=== PATIENT | female | born 1965 | race Caucasian/White ===

== ENCOUNTER 2019-02-10 04:50 | Inpatient (IN) | payer BC ==
--- NOTE | 2019-01-30 17:10 | HP ---
Admitting History and Physical - Primary Care Physician PCP: Carlos Eduardo Montalvo - Admission Chief Complaint: Left Breast cancer History of Present Illness: 53 year old nulliparous postmenapausal female patient who had mammogram showing new left breast 6:00mcalcifications 08/2018 and seen on compression 2 groups of of calcification 3 to 5 cm FN. Stereotactic core bx 08/21/2018 showed infiltrating ductal carcinoma and DCIS. She underwent neoadjuvant chemotherapy for ER+ CO- Her 2 + cancer. Pet cCT scan showed 08/2018 showed no metastatc dz but has some enhancement in appendix and could be a carcinoid. MRI breast 2018 showed showed other suspicious areas lateral left breast and right upper outer aspect. MRI core bxs showed DCIS left and invasive mammary ca in right. She underwent CHPneoadjuvant and was suppose to undergo bilateral mastectomies with CHRISTAL reconstruction at [place] but breast surgeon left. History Source: Patient Limitations to Obtaining History: No Limitations - Past Medical History Gastrointestinal: Yes: Other (most likely has carcinoid from recent PETCT findings) Renal/: Yes: Renal Calculi Endocrine: Yes: Other (thyroid nodules) - Past Surgical History Past Surgical History: Yes: Hysterectomy (TIFFANIE 07/2003 chronic endometriosis lysis of adhesions ureteral dissection Supracervical BSO) Additional Past Surgical History: Port placement 08/2018 endometrial bx and lap left breast excision - Smoking History Smoking history: Never smoked Have you smoked in the past 12 months: No - Alcohol/Substance Use Hx Alcohol Use: Yes (1 to 2 wk) Home Medications - Allergies Allergies/Adverse Reactions: Allergies Allergy/AdvReac Type Severity Reaction Status Date / Time morphine Allergy Verified 01/30/19 17:12 tramadol [From Ultram] Allergy Verified 01/30/19 17:12 - Home Medications Home Medications (free text): Herceptin Family Disease History - Family Disease History Other Family History: mat cousin lobular carcinoma breast 39 Physical Examination Constitutional: Yes: No Distress Breast(s): Yes: Other (moderately ptotic breasts C cup No palpable massesor adenopathy S/P neoadjuvant chemotherapy) Problem List - Problems (1) Bilateral breast cancer Code(s): C50.911 - MALIGNANT NEOPLASM OF UNSP SITE OF RIGHT FEMALE BREAST; C50.912 - MALIGNANT NEOPLASM OF UNSPECIFIED SITE OF LEFT FEMALE BREAST Qualifiers: Breast location: overlapping sites of breast Estrogen receptor status: positive Patient sex: female Qualified Code(s): C50.811 - Malignant neoplasm of overlapping sites of right female breast; C50.812 - Malignant neoplasm of overlapping sites of left female breast; Z17.0 - Estrogen receptor positive status [ER+] Assessment/Plan Bilateral mastectomies ,Bilateral lymphoscintograms, bilateral sentenel node biopsies with possible bilateral axillary node dissections CHRISTAL reconstruction
[2019-02-09 15:48] VITALS: BMI 27.6
[2019-02-10] MEDS ORDERED: SUCCINYLCHOLINE CHLORIDE 200 MG/10 ML SYRINGE ONE (07:14)
[2019-02-10] MEDS ORDERED: DEXAMETHASONE SOD PHOSPHATE 4 MG/1 ML VIAL ONE (07:14)
[2019-02-10] MEDS ORDERED: fentaNYL CITRATE 250 MCG/5 ML VIAL ONE (07:14)
[2019-02-10] MEDS ORDERED: LIDOCAINE HCL/PF 2% SDV 5ML VIAL ONE (07:14)
[2019-02-10] MEDS ORDERED: PROPOFOL 20 ML ONE (07:14)
[2019-02-10] MEDS ORDERED: ROCURONIUM BROMIDE 50 MG/5 ML SYRINGE ONE ×4 (07:14→12:33)
[2019-02-10] MEDS ORDERED: HEPARIN NA (PORCINE) 5,000 UNITS/ML 1ML VIAL ONE (07:26)
[2019-02-10] MEDS ORDERED: BUPIVACAINE LIPOSOME/PF (EXPAREL) 266 MG/20 ML VIAL ONE (07:26)
[2019-02-10] MEDS ORDERED: ISOSULFAN BLUE 10 MG/ML VIAL SQ ONE (07:26)
[2019-02-10] MEDS ORDERED: BUPIVACAINE HCL/PF 0.25% (2.5MG/ML) 10 ML VIAL ONE (07:26)
[2019-02-10] MEDS ORDERED: PAPAVERINE HCL 30 MG/1 ML 10 ML VIAL NR ONE (07:26)
[2019-02-10] MEDS ORDERED: DESFLURANE GAS 240 ML BOTTLE IH ONE (07:27)
[2019-02-10] MEDS ORDERED: SCOPOLAMINE HYDROBROMIDE 1 PATCH PATCH.TD72 ONE (07:46)
[2019-02-10] MEDS ORDERED: MIDAZOLAM HCL 2 MG/2 ML SINGLE DOSE VIAL ONE (08:12)
[2019-02-10] MEDS ORDERED: ceFAZolin SODIUM 1 GM VIAL IVPB ONE (08:25)
[2019-02-10] MEDS ORDERED: ceFAZolin SODIUM 1 GM VIAL ONE ×4 (08:27→19:50)
[2019-02-10] MEDS ORDERED: HEPARIN NA (PORCINE) 5,000 UNITS/ML 1ML VIAL TP ONE (09:23)
[2019-02-10] MEDS ORDERED: GLYCOPYRROLATE 0.2 MG/1 ML VIAL ONE ×2 (09:48→16:58)
--- NOTE | 2019-02-10 14:04 | OP ---
DATE OF OPERATION: 02/10/2019 PREOPERATIVE DIAGNOSIS: Bilateral breast cancer with left overlapping multicentric breast cancer and right breast cancer, upper outer quadrant. POSTOPERATIVE DIAGNOSIS: Bilateral breast cancer with left overlapping multicentric breast cancer and right breast cancer, upper outer quadrant. PROCEDURE: Bilateral total mastectomies, bilateral axillary sentinel lymph node biopsies, and bilateral CHRISTAL (deep inferior epigastric perforators) flap reconstruction. ANESTHESIA: General endotracheal anesthesia. PRIMARY SURGEON: Sandra Singletary MD LANDSCAPE SUPERVISOR: MARJORIE Lantigua Primary surgeon for the bilateral CHRISTAL flap reconstruction is Dr. Sandra Sanchez with his co-surgeon, Dr. Andi Brnuer and inside sales assistant Jackie Aguilar. There were no complications. Briefly, the patient is a 53-year-old, nulliparous, postmenopausal white female of [place] descent. The patient was found to have some calcifications in the left breast 6 o'clock region on screening mammography in August 2018, and stereotactic biopsy of 2 groups of calcifications in the left breast 6 o'clock region came back with high-grade infiltrating ductal cancer, which was ER positive, MD negative, HER-2 positive, with a high Ki-67. MRI showed other areas in the lateral left breast and right breast upper outer quadrant, and MRI biopsies of these areas showed an invasive mammary carcinoma in the right breast upper outer quadrant and DCIS in the lateral aspect of the left breast. She underwent neoadjuvant chemotherapy with TCHP and underwent genetic testing, which was negative. PET scan showed no metastatic disease. She now presents after neoadjuvant chemotherapy and has chosen to undergo bilateral mastectomies and understood the need for sentinel lymph node biopsies and was seen by Plastic Surgery and decided to go forward with CHRISTAL flap reconstructions. The patient was brought in for the procedure on February 10, 2019. She first underwent bilateral lymphoscintigraphies with periareolar injections of technetium 99 in Nuclear Medicine, was brought up to the holding area at [facility]. In the holding area, site verification was made and informed consent was obtained. She was marked preoperatively by the plastic surgeon. She was brought in to the operating room and laid on the OR table in the supine position. Venodynes were placed on the lower extremities prior to induction. She received 2 g of Ancef prior to incision. She had a Aguilera placed, underwent general endotracheal anesthesia. Lymphazurin blue 3 mL was injected intradermally around the nipple-areolar complex of both breasts and massage was instituted. Both breasts were then sterilely prepped and draped in the usual fashion with the arms prepped in the field. The plastic surgeons had performed Doppler evaluation of the abdominal wall to julián the perforators, and the abdominal wall was sterilely prepped and draped within the field. At this point, timeout was performed. The left sentinel lymph node biopsy was first performed. Incision was made just below the hair-bearing area of the left axilla and dissection was undertaken using the navigator probe to direct the dissection. Two sentinel nodes were found in the level 1 region of the left axilla. The 1st one was blue with no radioactive counts and the 2nd one was slightly blue with a 10-second gamma count of 155. No other blue or hot nodes were found. Hemostasis was achieved. These 2 nodes were sent down for frozen section, came back negative, so no further nodes needed to be removed. At this point, gloves were changed and the right axilla was approached. Again, incision was made just below the hair-bearing area and dissection was undertaken into the right axilla and a blue lymphatic was easily seen coursing through a blue hot node with a 10-second gamma count of 353. This was sent down for frozen section, came back negative, so no further nodes were removed. No other blue or hot nodes were found in the right axilla. At this point, the right mastectomy was performed using a circumareolar incision around the right breast nipple-areolar complex in a skin-sparing fashion. Skin flap was raised using electrocautery, raising the skin flap superiorly to the level of the clavicle, medially to the level of the sternum, laterally to the level of the latissimus, and inferiorly below the level of the inframammary fold. The breast was taken down off the pectoralis major muscle from medial to lateral, completely removed intact. It was oriented with a long lateral and short superior suture and weighed to allow for appropriate cosmetic result. Specimen radiograph showed removal of the 2 clips in question in the right breast and it was placed in formalin, sent back down to Pathology. Hemostasis was achieved and the wound was copiously irrigated with warm sterile saline. An anterior margin was taken in the upper outer aspect of the right breast skin flap and sent separately as right breast anterior margin with a suture marking the biopsy cavity site. The wound was copiously irrigated and hemostasis achieved. At this point, the left breast was approached, gloves were changed, and again a circumareolar incision was made, removing the entire nipple-areolar complex in a skin-sparing technique. The skin flap was raised superiorly to the level of the clavicle, medially to the level of the sternum, laterally to the level of the latissimus, and inferiorly below the level of the inframammary fold. The breast was taken down off the pectoralis major muscle from medial to lateral, completely removed intact. It was oriented with a long lateral and short superior suture and weighed to allow for appropriate cosmetic result. Specimen radiograph of the breast showed removal of the 3 clips in question in the left breast, showing removal of the cancer. Hemostasis was achieved. The breast was placed in formalin, sent back to Pathology. Separate margins were then taken in the left breast anterior 6 o'clock margin and left breast anterolateral margin, and these margins were sent separately to Pathology with a suture marking the biopsy cavity site. The wound was copiously irrigated and warm saline was used and hemostasis was achieved. At this point, Dr. Sanchez and Dr. Bruner became the primary surgeons for the bilateral CHRISTAL reconstructions. They started harvesting the abdominal flap after the lymph nodes came back negative. All sponge and needle counts were correct at this point in the case and estimated blood loss was about 125 mL. She was hemodynamically stable at this point in the case. The patient will be recovered and then admitted to the ICU postoperatively after the reconstruction for close flap monitoring. All wounds will be closed by Plastic Surgery. SANDRA SINGLETARY M.D. MARIO/[id number]
[2019-02-10] MEDS ORDERED: VECURONIUM BROMIDE 10 MG VIAL ONE ×2 (14:31→16:31)
[2019-02-10] MEDS ORDERED: BUPIVACAINE LIPOSOME/PF (EXPAREL) 266 MG/20 ML VIAL IJ ONE (15:30)
[2019-02-10] MEDS ORDERED: BUPIVACAINE HCL/PF 0.25% (2.5MG/ML) 10 ML VIAL IJ ONE (15:30)
[2019-02-10] MEDS ORDERED: NEOSTIGMINE METHYLSULFATE 0.5 MG/ML - 10 ML MDV ONE (16:58)
[2019-02-10] MEDS ORDERED: oxyCODONE HCL 5 MG TABLET PO PRN ×2 (17:25→17:26)
[2019-02-10] MEDS ORDERED: ONDANSETRON 4 MG/2 ML VIAL IVPUSH PRN (17:25)
[2019-02-10] MEDS ORDERED: diazePAM 5 MG TABLET PO PRN (17:26)
[2019-02-10] MEDS ORDERED: FAMOTIDINE 20 MG/50 ML IVPB 20 MG/50 ML MG IVPB ONE ×2 (17:27→18:21)
[2019-02-10] MEDS: DEXTROSE 5%-0.45% SALINE 1,000 ML IV SCH (17:30)
[2019-02-10] MEDS ORDERED: FAMOTIDINE 20 MG PREMIXED IVPB IVPB ONE (17:35)
--- NOTE | 2019-02-10 18:09 | OP ---
Operative Note - Note: Operative Date: 02/10/19 Pre-Operative Diagnosis: breast cancer Operation: bilateral mastectomy wit sentinel node b/l and CHRISTAL( deep inferior epigastric jewel corner brushing machine operator) flap reconstruction Surgeon: Andi Bruner Sales Operations Director: Abebe Sanchez Anesthesiologist/COVERAGE SPECIALIST: Tish Steward Anesthesia: General Specimens Removed: bilateral breast with sentinel node Estimated Blood Loss (mls): 150 Drains, Volume Out (mls): 400 (alvarez) Fluid Volume Replaced (mls): 3,700 Operative Report Dictated: Yes
[2019-02-10] MEDS ORDERED: ACETAMINOPHEN INJECTION 200 ML IVPB ONE (18:27)
[2019-02-10] MEDS: ACETAMINOPHEN 1000 MG/100 ML VIAL (NON FORMULARY) IVPB SCH ×3 (18:45→23:27)
--- NOTE | 2019-02-10 20:18 | CONSULT ---
Consultation: CONSULT SERVICE: ICU Resident HISTORY OF PRESENT ILLNESS: 53yo F with h/o of new L and R breast Ca who presents today after bilateral mastectomies with sentinel node biopsies and CHRISTAL flap construction. Pt had calcifications seen on 08/2018 on routine mammogram and underwent core biopsy which revealed infiltrating ductal carcinoma and DCIS in her L breast. She underwent neoadjuvant therapy (ER+[place]- HER2+ ca). In 08/2018 she was found to have other areas of suspicion in her R breast with core bx showing invasive mammary Ca and again underwent neoadjuvant therapy. She was supposed to have b/ l mastectomy with CHRISTAL reconstruction at [place] however the surgeon had moved and was unable to provide this service. Today she underwent her scheduled procedure with Dr. Montalvo with reported 150cc EBL and 3.7L IVF resuscitation. Pt's surgery was uncomplicated and she was extubated without complication. Pt currently reports having a sore throat and feeling of a dry mouth, but denies any pain, headaches, nausea, abdominal pain, weakness, numbness/tingling. ALL: Morphine and Tramadol - Nausea only SoHx: Occasional day smoker Wine at dinner/social drinker Works as tax accounting manager at [employer] FamHx: Mother - may. - Lung Ca / to smoking Father - may. - CT @75yo 2 brothers - 1 alive - HTN MGM/MGF - CT's PGM/PGF - Colon Ca/Dementia REVIEW OF SYSTEMS: As per HPI PHYSICAL EXAMINATION Vital Signs 02/10/19 02/10/19 02/10/19 06:39 06:42 06:43 Temperature 98.1 F 98.1 F Pulse Rate 57 L 57 L Respiratory 20 20 Rate Blood Pressure 129/72 129/72 O2 Sat by Pulse 99 Oximetry (%) 02/10/19 02/10/19 02/10/19 17:23 17:35 17:50 Temperature 97.6 F Pulse Rate 106 H 79 54 L Respiratory 18 16 14 Rate Blood Pressure 140/82 132/70 105/60 O2 Sat by Pulse 97 97 100 Oximetry (%) 02/10/19 02/10/19 02/10/19 18:05 18:20 18:35 Temperature Pulse Rate 55 L 58 L 57 L Respiratory 18 18 14 Rate Blood Pressure 113/56 L 106/57 L 123/61 O2 Sat by Pulse 100 100 100 Oximetry (%) 02/10/19 02/10/19 02/10/19 18:50 19:05 19:20 Temperature Pulse Rate 60 58 L 58 L Respiratory 14 14 16 Rate Blood Pressure 113/58 L 118/63 115/60 O2 Sat by Pulse 100 100 100 Oximetry (%) GENERAL: NAd, awake, alert, and fully oriented HEENT: NC/AT, EOMi, JAYA, sclera anicteric, pallor noted, dry mucosa NECK: No JVD . LUNGS: CTA apically bilaterally. No wheezes, and no crackles. No accessory muscle use. Room air SpO2 97% HEART: RRR, normal S1 and S2 without murmur CHEST: Surgical area not observed at this time. Support in place ABDOMEN: Soft, NT/ND, hypoactive bowel sounds, no guarding. : Aguilera in place draining clear blue ~50-100cc in collection bag EXTREMITIES: 2+ DP pulses, warm, well-perfused. No calf tenderness. No peripheral edema. SCDs in place PSYCHIATRIC: Cooperative. Good eye contact. Appropriate mood and affect. SKIN: Warm, dry, no rashes or lesions noted. Laboratory Results 02/10/19 02/10/19 06:17 07:55 Blood Type O NEGATIVE O NEGATIVE Antibody Screen Negative Active Medications Generic Name Dose Route Start Last Admin Trade Name Freq PRN Reason Stop Dose Admin Acetaminophen 1,000 mg 02/10/19 17:45 02/10/19 18:45 Ofirmev Injection - IVPB 02/11/19 11:46 1,000 mg Q6H CLIF Administration Aspirin 325 mg 02/10/19 20:10 Asa - PO DAILY [facility] Diazepam 5 mg 02/10/19 17:26 Valium - PO Q8H PRN ANXIETY Docusate Sodium 100 mg 02/10/19 22:00 Colace - PO BID [facility] Enoxaparin Sodium 40 mg 02/11/19 10:00 Lovenox - SQ DAILY [facility] Fentanyl 50 mcg 02/10/19 17:25 02/10/19 18:15 Sublimaze Injection - IVPUSH 50 mcg [id number] PRN Administration PAIN-PACU ORDER X 4 DOSES ONLY Cefazolin Sodium 1 gm in 50 mls @ 100 mls/hr 02/10/19 22:30 Ancef 1 Gm Premixed Ivpb - IVPB Q6H [facility] Dextrose/Sodium Chloride 1,000 mls @ 125 mls/hr 02/10/19 17:30 02/10/19 17:30 D5-1/2ns - IV 125 mls/hr ASDIR CLIF Administration Dextrose/Sodium Chloride 1,000 mls @ 75 mls/hr 02/11/19 08:00 D5-1/2ns - IV ASDIR CLIF Ondansetron HCl 4 mg 02/10/19 17:25 Zofran Injection IVPUSH Q6H PRN NAUSEA AND/OR VOMITING Oxycodone HCl 5 mg 02/11/19 17:27 Roxicodone - PO Q4H PRN PAIN LEVEL 1-5 Oxycodone HCl 10 mg 02/10/19 17:26 Roxicodone - PO Q4H PRN PAIN LEVEL 6-10 Promethazine HCl 12.5 mg 02/10/19 17:25 Phenergan Injection - IVPUSH Q6H PRN NAUSEA-FOR RESCUE AFTER 15 MIN ASSESSMENT/PLAN: POD#0 b/l Mastectomies, sentinel node bx, and CHRISTAL reconstruction Mixed HLD (pre-op labs) Macrocytic anemia (pre-op labs) --Q1h CHRISTAL doppler checks --Monitor BP and bolus PRN to maintain MAP 65+ for maintenance of CHRISTAL --ASA 325mg now as per surgical team --To continue daily --Oxycodone 5mg/10mg choice q4h PRN for pain levels --Zofran and Phenergan on board for post-op nausea --D5-1/2NS@125cc/hr overnight for fluid replacement --Do not exceed >35* HOB elevation --Post-op abx per SCIP protocol FEN: Fluids: D5-1/2NS@125cc/hr Electrolyte abnormalities: Pre-op labs - none Nutrition: NPO except medications PPX: DVT - SCDs only; can start Lovenox SQ tomorrow per surgical PA GI - Not indicated currently Dispo: Monitor in ICU due to q1h doppler checks Case discussed with surgical team Chaitanya Fitzpatrick, DO - IM PGY-3 Visit type - Emergency Visit Emergency Visit: No - New Patient This patient is new to me today: Yes Date on this admission: 02/10/19 - Critical Care Critical Care patient: Yes Total Critical Care Time (in minutes): 35 Critical Care Statement: The care of this patient involved high complexity decision making to prevent further life threatening deterioration of the patient 's condition and/or to evaluate & treat vital organ system(s) failure or risk of failure.
[2019-02-10] MEDS: ASPIRIN 325 MG TABLET PO SCH (22:28)
[2019-02-10] MEDS: DOCUSATE SODIUM 100 MG CAPSULE (FP) PO SCH (22:29)
[2019-02-10] MEDS ORDERED: CEFAZOLIN 1 GM/D5W 1 GM/50 ML BAG IVPB SCH (22:30)
[2019-02-11] MEDS ORDERED: PT OWN MED DRAWER 7, Y5N ONE (03:16)
[2019-02-11] MEDS ORDERED: ceFAZolin SODIUM 1 GM VIAL ONE ×4 (04:20→20:58)
[2019-02-11] MEDS ORDERED: DEXTROSE 5%-WATER - 50 ML IVPB ONE ×4 (04:20→20:58)
[2019-02-11] MEDS: CEFAZOLIN 1 GM in DEXTROSE 5%-WATER - 50 ML IVPB SCH ×4 (05:53→21:44)
[2019-02-11] MEDS: ACETAMINOPHEN 1000 MG/100 ML VIAL (NON FORMULARY) IVPB SCH ×2 (05:53→10:50)
[2019-02-11 06:50] LABS: BASO % 0.1 % (0-2.0); EOS % 0.1 % (0-4.5); HEMATOCRIT 27.1 % (32.4-45.2); HEMOGLOBIN 9.3 GM/dL (10.7-15.3); LYMPH % 10.5 % (8-40); MCH 33.6 pg (25.7-33.7); MCHC 34.4 g/dl (32.0-36.0); MEAN CELL VOLUME 97.5 fl (80-96); MEAN PLT VOLUME 8.4 fl (7.5-11.1); MONO % 10.1 % (3.8-10.2); NEUT % 79.2 % (42.8-82.8); PLATELET COUNT 179 K/MM3 (134-434); RBC 2.78 M/mm3 (3.60-5.2); RDW 14.1 % (11.6-15.6); WHITE BLOOD COUNT 9.6 K/mm3 (4.0-10.0)
[2019-02-11 06:53] LABS: BLOOD UREA NITROGEN 18.2 mg/dL (7-18); CREATININE 0.8 mg/dL (0.55-1.3); POTASSIUM 4.2 mmol/L (3.5-5.1)
[2019-02-11] MEDS ORDERED: DEXTROSE 5%-0.45% SALINE 1,000 ML IV SCH (08:00)
--- NOTE | 2019-02-11 08:00 | PN ---
Progress Note, Physician Chief Complaint: Bilateral breast cancer; right upper outer quadrant and left overlapping multifocal History of Present Illness: The patient was diagnosed with bilateral breast cancer with the left breast cancer HER2+. She underwent neoadjuvant CTX with TCHP with good clinical response. She decided on bilateral mastectomies and CHRISTAL flap reconstructions which was performed on February 10, 2019 and is admitted postoperatively for flap monitoring and wound care/pain control. - Current Medication List Current Medications: Active Medications Acetaminophen (Ofirmev Injection -) 1,000 mg IVPB Q6H [facility] Stop: 02/11/19 11:46 Last Admin: 02/11/19 05:53 Dose: 1,000 mg Aspirin (Asa -) 325 mg PO DAILY [facility] Last Admin: 02/10/19 22:28 Dose: 325 mg Diazepam (Valium -) 5 mg PO Q8H PRN PRN Reason: ANXIETY Docusate Sodium (Colace -) 100 mg PO BID [facility] Last Admin: 02/10/19 22:29 Dose: Not Given Enoxaparin Sodium (Lovenox -) 40 mg SQ DAILY [facility] Dextrose/Sodium Chloride (D5-1/2ns -) 1,000 mls @ 125 mls/hr IV ASDIR [facility] Last Admin: 02/10/19 17:30 Dose: 125 mls/hr Dextrose/Sodium Chloride (D5-1/2ns -) 1,000 mls @ 75 mls/hr IV ASDIR [facility] Cefazolin Sodium 1 gm/ (Dextrose) 50 mls @ 100 mls/hr IVPB Q6H [facility] Last Admin: 02/11/19 05:53 Dose: 100 mls/hr Ondansetron HCl (Zofran Injection) 4 mg IVPUSH Q6H PRN PRN Reason: NAUSEA AND/OR VOMITING Oxycodone HCl (Roxicodone -) 5 mg PO Q4H PRN PRN Reason: PAIN LEVEL 1-5 Oxycodone HCl (Roxicodone -) 10 mg PO Q4H PRN PRN Reason: PAIN LEVEL 6-10 Last Admin: 02/11/19 06:20 Dose: 10 mg Promethazine HCl (Phenergan Injection -) 12.5 mg IVPUSH Q6H PRN PRN Reason: NAUSEA-FOR RESCUE AFTER 15 MIN - Objective Vital Signs: Vital Signs Temperature 98.4 F 02/11/19 06:00 Pulse Rate 60 02/11/19 06:00 Respiratory Rate 19 02/11/19 06:00 Blood Pressure 107/54 L 02/11/19 06:00 O2 Sat by Pulse Oximetry (%) 100 02/10/19 22:00 Constitutional: Yes: Well Nourished, No Distress, Calm Eyes: Yes: WNL HENT: Yes: WNL Neck: Yes: WNL Cardiovascular: Yes: Regular Rate and Rhythm Respiratory: Yes: Regular, CTA Bilaterally Gastrointestinal: Yes: Normal Bowel Sounds, Soft ...Rectal Exam: Yes: Deferred Genitourinary: Yes: WNL Breast(s): Yes: Other (Bilateral mastectomy wounds clean, dry, and intact. CHRISTAL flaps warm and viable. God dopplerable signals.) Musculoskeletal: Yes: WNL Extremities: Yes: WNL Integumentary: Yes: WNL Wound/Incision: Yes: Clean/Dry, Well Approximated Neurological: Yes: Alert, Oriented Psychiatric: Yes: WNL Labs: CBC, BMP 02/11/19 05:10 02/11/19 05:10 Problem List - Problems (1) Bilateral breast cancer Assessment/Plan: The patient is doing well POD#1 s/p bilateral total mastectomies with bilateral sentinel lymph node biopsies with bilateral CHRISTAL flap reconstructions. She has good pain control. Drains functioning well. CHRISTAL flaps and mastectomy flaps warm and viable. Good dopplerable signals. Patient may be OOB today into chair and ambulating with assistance. Remove alvarez today. May be started on regular diet. Continue antibiotics and pain medication. Continue monitoring in ICU with doppler of CHRISTAL flaps. Code(s): C50.911 - MALIGNANT NEOPLASM OF UNSP SITE OF RIGHT FEMALE BREAST; C50.912 - MALIGNANT NEOPLASM OF UNSPECIFIED SITE OF LEFT FEMALE BREAST Qualifiers: Breast location: overlapping sites of breast Estrogen receptor status: positive Patient sex: female Qualified Code(s): C50.811 - Malignant neoplasm of overlapping sites of right female breast; C50.812 - Malignant neoplasm of overlapping sites of left female breast; Z17.0 - Estrogen receptor positive status [ER+]
--- NOTE | 2019-02-11 08:28 | PN ---
Progress Note (short form) - Note Progress Note: POD #1 s/p bilateral mastectomy with sentinel node bx and b/l CHRISTAL flap reconstruction No acute events over past 24hrs per RN notes. Patient is alert. Resting comfortably with bed in flexed position. C/o incisional tenderness. Adequate pain control with medications ordered. Using her incentive spirometer as directed. Denies n/v/f/c, CP, SOB or LOVE. Last Vital Signs Temp Pulse Resp BP Pulse Ox 98.4 F 63 15 97/54 L 100 02/11/19 06:00 02/11/19 08:00 02/11/19 08:00 02/11/19 08:00 02/10/19 22:00 CBC, BMP 02/11/19 05:10 02/11/19 05:10 DRAIN OUTPUT 02/11/19 02/11/19 02/11/19 02:00 05:50 06:19 Left ABD 20 10 5 Right ABD 20 10 Left Breast 60 30 20 Right Breast 40 15 Alvarez 200 900 Gen: alert. nad. Breasts: Flaps viable bilateral. Good cap refill. No signs of venous congestion. Warm. Dopplerable pulse bilat. JPs on bulb suction (serosang) ABD: Incision c/d/i. Umbilicus viable. JPs on bulb suction (serosang) : alvarez to gravity (clear) LE: Soft. NT. SCDs bilat Problem List - Problems (1) Bilateral breast cancer Assessment/Plan: POD #1 bilateral total mastectomies with bilateral sentinel lymph node biopsies with bilateral CHRISTAL flap reconstructions 1. New bra ordered as current one doesn't really support breast tissue laterally. - if replacement bra fits too tight, may replace original bra and pad the bra with kerlix to bolster it. NO PRESSURE TO TISSUE UPPER/INNER QUADRANT. 2. DC alvarez once patient is OOB to chair 3. Ambulate with PT 4. Case Management for VNS 5. Pain management 6. Incentive spirometer 7. Monitor/record LOLI outputs Q shift 8. Doppler check flaps Q shift 9. Regular diet 10. Cont IV ABX 11. Cont ICU management Above plan discussed with Dr. Bruner and agrees. Code(s): C50.911 - MALIGNANT NEOPLASM OF UNSP SITE OF RIGHT FEMALE BREAST; C50.912 - MALIGNANT NEOPLASM OF UNSPECIFIED SITE OF LEFT FEMALE BREAST Qualifiers: Breast location: overlapping sites of breast Estrogen receptor status: positive Patient sex: female Qualified Code(s): C50.811 - Malignant neoplasm of overlapping sites of right female breast; C50.812 - Malignant neoplasm of overlapping sites of left female breast; Z17.0 - Estrogen receptor positive status [ER+]
[2019-02-11] MEDS: ASPIRIN 325 MG TABLET PO SCH (09:38)
[2019-02-11] MEDS: ENOXAPARIN NA (PORCINE) 40 MG/0.4 ML DISP.SYRIN SQ SCH (09:38)
[2019-02-11] MEDS: DOCUSATE SODIUM 100 MG CAPSULE (FP) PO SCH ×2 (09:40→21:44)
[2019-02-11] MEDS ORDERED: ASPIRIN 325 MG TABLET PO SCH (10:00)
[2019-02-11] MEDS ORDERED: fentaNYL CITRATE 250 MCG/5 ML VIAL IVPUSH PRN (11:43)
--- NOTE | 2019-02-11 11:46 | PN ---
Physical Exam: SUBJECTIVE: Patient seen and examined OBJECTIVE: Vital Signs Period Temp Pulse Resp BP Sys/Loza Pulse Ox Last 24 Hr 97.6 F-100.0 F 54-106 11-20 97-140/51-82 97-100 GENERAL: The patient is awake, alert, and fully oriented, in no acute distress. HEAD: Normal with no signs of trauma. EYES: PERRL, extraocular movements intact, sclera anicteric, conjunctiva clear. No ptosis. ENT: Ears normal, nares patent, oropharynx clear without exudates, moist mucous membranes. NECK: Trachea midline, full range of motion, supple. LUNGS: Breath sounds equal, clear to auscultation bilaterally, no wheezes, no crackles, no accessory muscle use. HEART: Regular rate and rhythm, S1, S2 without murmur, rub or gallop. ABDOMEN: Soft, nontender, nondistended, normoactive bowel sounds, no guarding, no rebound, no hepatosplenomegaly, no masses. EXTREMITIES: 2+ pulses, warm, well-perfused, no edema. NEUROLOGICAL: Cranial nerves II through XII grossly intact. Normal speech, gait not observed. PSYCH: Normal mood, normal affect. SKIN: Warm, dry, normal turgor, no rashes or lesions noted GENERAL: NAd, awake, alert, and fully oriented HEENT: NC/AT, EOMi, JAYA, sclera anicteric, pallor noted, dry mucosa NECK: No JVD . LUNGS: CTA apically bilaterally. No wheezes, and no crackles. No accessory muscle use. Room air SpO2 97% HEART: RRR, normal S1 and S2 without murmur CHEST: Surgical area not observed at this time. Support in place ABDOMEN: Soft, NT/ND, hypoactive bowel sounds, no guarding. : Aguilera in place draining clear blue ~50-100cc in collection bag EXTREMITIES: 2+ DP pulses, warm, well-perfused. No calf tenderness. No peripheral edema. SCDs in place PSYCHIATRIC: Cooperative. Good eye contact. Appropriate mood and affect. SKIN: Warm, dry, no rashes or lesions noted. Laboratory Results - last 24 hr 02/11/19 02/11/19 05:10 05:10 WBC 9.6 RBC 2.78 L Hgb 9.3 L Hct 27.1 L MCV 97.5 H MCH 33.6 MCHC 34.4 RDW 14.1 Plt Count 179 MPV 8.4 Absolute Neuts (auto) 7.6 Neutrophils % 79.2 Lymphocytes % 10.5 Monocytes % 10.1 Eosinophils % 0.1 Basophils % 0.1 Nucleated RBC % 0 Sodium 140 Potassium 4.2 Chloride 106 Carbon Dioxide 30 Anion Gap 5 L BUN 18.2 H Creatinine 0.8 Est GFR (CKD-EPI)AfAm 96.19 Est GFR (CKD-EPI)NonAf 83.00 Random Glucose 113 H Calcium 8.0 L Active Medications Generic Name Dose Route Start Last Admin Trade Name Freq PRN Reason Stop Dose Admin Aspirin 325 mg 02/10/19 20:10 02/11/19 09:38 Asa - PO 325 mg DAILY [facility] Administration Diazepam 5 mg 02/10/19 17:26 Valium - PO Q8H PRN ANXIETY Docusate Sodium 100 mg 02/10/19 22:00 02/11/19 09:40 Colace - PO 100 mg BID [facility] Administration Enoxaparin Sodium 40 mg 02/11/19 10:00 02/11/19 09:38 Lovenox - SQ 40 mg DAILY [facility] Administration Fentanyl 250 mcg 02/11/19 11:43 Sublimaze Injection - IVPUSH ONCE PRN PAIN LEVEL 6-10 Dextrose/Sodium Chloride 1,000 mls @ 125 mls/hr 02/10/19 17:30 02/10/19 17:30 D5-1/2ns - IV 125 mls/hr ASDIR [facility] Administration Dextrose/Sodium Chloride 1,000 mls @ 75 mls/hr 02/11/19 08:00 02/11/19 08:59 D5-1/2ns - IV 75 mls/hr ASDIR [facility] Administration Cefazolin Sodium 1 gm/ 50 mls @ 100 mls/hr 02/11/19 04:00 02/11/19 09:39 Dextrose IVPB 100 mls/hr Q6H [facility] Administration Ondansetron HCl 4 mg 02/10/19 17:25 Zofran Injection IVPUSH Q6H PRN NAUSEA AND/OR VOMITING Oxycodone HCl 5 mg 02/11/19 17:27 Roxicodone - PO Q4H PRN PAIN LEVEL 1-5 Oxycodone HCl 10 mg 02/10/19 17:26 02/11/19 06:20 Roxicodone - PO 10 mg Q4H PRN Administration PAIN LEVEL 6-10 Promethazine HCl 12.5 mg 02/10/19 17:25 Phenergan Injection - IVPUSH Q6H PRN NAUSEA-FOR RESCUE AFTER 15 MIN ASSESSMENT/PLAN: Ms. Morrell is a 53yo F with h/o of new L and R breast Ca who presents today after bilateral mastectomies with sentinel node biopsies and CHRISTAL flap construction. She is POD#1. POD#1 b/l Mastectomies, sentinel node bx, and CHRISTAL reconstruction Mixed HLD (pre-op labs) Macrocytic anemia (pre-op labs) Neurologic/ MSK -- Pain management --Oxycodone 5mg/10mg choice q4h PRN for pain levels --Fentanyl 25mcg IVpush PRN for breakthrough pain --OOB/ PT Cardiovascular --Q1h CHRISTAL doppler checks --Monitor BP and bolus PRN to maintain MAP 65+ for maintenance of CHRISTAL --ASA 325mg now as per surgical team --To continue daily Pulmonary --Incentive spirometry GI --Zofran and Phenergan on board for post-op nausea ID --Post-op abx per SCIP protocol FEN: Fluids: D5-1/2NS@125cc/hr Electrolyte abnormalities: Pre-op labs - none Nutrition: regular diet PPX: DVT -Lovenox 40 SQ GI - Not indicated currently Dispo: Monitor in ICU due to q1h doppler checks, will likely be able to be transferred to floors tomorrow morning. Case discussed with surgical team Visit type - Emergency Visit Emergency Visit: No - New Patient This patient is new to me today: Yes Date on this admission: 02/11/19 - Critical Care Critical Care patient: Yes Total Critical Care Time (in minutes): 40 Critical Care Statement: The care of this patient involved high complexity decision making to prevent further life threatening deterioration of the patient 's condition and/or to evaluate & treat vital organ system(s) failure or risk of failure. ATTENDING PHYSICIAN STATEMENT I saw and evaluated the patient. I reviewed the resident's note and discussed the case with the resident. I agree with the resident's findings and plan as documented. SUBJECTIVE: OBJECTIVE: ASSESSMENT AND PLAN:
--- NOTE | 2019-02-11 12:45 | PN ---
Teaching Attending Note Name of Resident: Opla Sampson ATTENDING PHYSICIAN STATEMENT I saw and evaluated the patient. I reviewed the resident's note and discussed the case with the resident. I agree with the resident's findings and plan as documented. SUBJECTIVE: Patient seen and examined in the ICU. Awake and alert. Mildly uncomfortable due to pain. Reports that she annot take a full breath. Seen by surgery -> good doppler pulses Intake & Output 02/08/19 02/09/19 02/10/19 02/11/19 23:59 23:59 23:59 23:59 Intake Total 4050 1800 Output Total 1117 1600 Balance 2933 200 Weight 166 lb Last Vital Signs Temp Pulse Resp BP Pulse Ox 98 F 63 19 106/53 L 100 02/11/19 10:00 02/11/19 12:00 02/11/19 12:00 02/11/19 12:00 02/11/19 08:38 Active Medications Aspirin (Asa -) 325 mg PO DAILY [facility] Last Admin: 02/11/19 09:38 Dose: 325 mg Diazepam (Valium -) 5 mg PO Q8H PRN PRN Reason: ANXIETY Docusate Sodium (Colace -) 100 mg PO BID [facility] Last Admin: 02/11/19 09:40 Dose: 100 mg Enoxaparin Sodium (Lovenox -) 40 mg SQ DAILY [facility] Last Admin: 02/11/19 09:38 Dose: 40 mg Fentanyl (Sublimaze Injection -) 25 mcg IVPUSH ONCE PRN PRN Reason: PAIN LEVEL 6-10 Stop: 02/12/19 12:03 Dextrose/Sodium Chloride (D5-1/2ns -) 1,000 mls @ 125 mls/hr IV ASDIR [facility] Last Admin: 02/10/19 17:30 Dose: 125 mls/hr Dextrose/Sodium Chloride (D5-1/2ns -) 1,000 mls @ 75 mls/hr IV ASDIR [facility] Last Admin: 02/11/19 08:59 Dose: 75 mls/hr Cefazolin Sodium 1 gm/ (Dextrose) 50 mls @ 100 mls/hr IVPB Q6H [facility] Last Admin: 02/11/19 09:39 Dose: 100 mls/hr Ondansetron HCl (Zofran Injection) 4 mg IVPUSH Q6H PRN PRN Reason: NAUSEA AND/OR VOMITING Oxycodone HCl (Roxicodone -) 5 mg PO Q4H PRN PRN Reason: PAIN LEVEL 1-5 Oxycodone HCl (Roxicodone -) 10 mg PO Q4H PRN PRN Reason: PAIN LEVEL 6-10 Last Admin: 02/11/19 06:20 Dose: 10 mg Promethazine HCl (Phenergan Injection -) 12.5 mg IVPUSH Q6H PRN PRN Reason: NAUSEA-FOR RESCUE AFTER 15 MIN GENERAL: awake, alert, and oriented HEENT: NC/AT, EOMi, JAYA, sclera anicteric, pallor noted, dry mucosa NECK: No JVD . LUNGS: CTA apically bilaterally. No wheezes, and no crackles. No accessory muscle use. HEART: RRR, normal S1 and S2 without murmur CHEST: Surgical area not observed at this time. Support in place ABDOMEN: Soft, NT/ND, hypoactive bowel sounds, no guarding. : Aguilera in place draining EXTREMITIES: 2+ DP pulses, warm, well-perfused. No calf tenderness. No peripheral edema. SCDs in place PSYCHIATRIC: Cooperative. Good eye contact. Appropriate mood and affect. SKIN: Warm, dry, no rashes or lesions noted. Laboratory Results - last 24 hr 02/11/19 02/11/19 05:10 05:10 WBC 9.6 RBC 2.78 L Hgb 9.3 L Hct 27.1 L MCV 97.5 H MCH 33.6 MCHC 34.4 RDW 14.1 Plt Count 179 MPV 8.4 Absolute Neuts (auto) 7.6 Neutrophils % 79.2 Lymphocytes % 10.5 Monocytes % 10.1 Eosinophils % 0.1 Basophils % 0.1 Nucleated RBC % 0 Sodium 140 Potassium 4.2 Chloride 106 Carbon Dioxide 30 Anion Gap 5 L BUN 18.2 H Creatinine 0.8 Est GFR (CKD-EPI)AfAm 96.19 Est GFR (CKD-EPI)NonAf 83.00 Random Glucose 113 H Calcium 8.0 L ASSESSMENT/PLAN: POD#1: Bilateral Mastectomies, sentinel node bx, and CHRISTAL reconstruction HLD Macrocytic anemia Flap checks per surgery Pain control Encourage Incentive Spirometry ASA 325mg OD VTE prophylaxis PO as tolerated Requires ICU monitoring for doppler checks Dr Haynes
[2019-02-11] MEDS: PROMETHAZINE HCL 25 MG/1 ML VIAL IVPUSH PRN (12:50)
[2019-02-11] MEDS ORDERED: oxyCODONE HCL 5 MG TABLET PO PRN ×2 (13:45→17:27)
--- NOTE | 2019-02-11 15:00 | PN ---
Progress Note (short form) - Note Progress Note: Anesthesia postop note 53 y/o F s/p GA for bilateral mastectomy with reconstruction. POD#1, vss, aaox3, sitting in chair, reports some pain. No anesthesia complications.
[2019-02-11] MEDS: DEXTROSE 5%-0.45% SALINE 1,000 ML IV SCH (18:02)
[2019-02-11] MEDS ORDERED: ACETAMINOPHEN 1000 MG/100 ML VIAL (NON FORMULARY) IVPB PRN (19:26)
[2019-02-11] MEDS: ACETAMINOPHEN 1000 MG/100 ML VIAL (NON FORMULARY) IVPB PRN (19:56)
[2019-02-12] MEDS ORDERED: ceFAZolin SODIUM 1 GM VIAL ONE ×4 (03:07→20:40)
[2019-02-12] MEDS ORDERED: DEXTROSE 5%-WATER - 50 ML IVPB ONE ×4 (03:07→20:40)
[2019-02-12] MEDS: PROMETHAZINE HCL 25 MG/1 ML VIAL IVPUSH PRN (03:35)
[2019-02-12] MEDS: CEFAZOLIN 1 GM in DEXTROSE 5%-WATER - 50 ML IVPB SCH ×4 (03:35→22:10)
[2019-02-12] MEDS: ACETAMINOPHEN 1000 MG/100 ML VIAL (NON FORMULARY) IVPB PRN (03:35)
[2019-02-12] MEDS ORDERED: BENZOCAINE/MENTH/CETYLPYRD CL 1 EACH LOZENGE MM PRN (04:24)
[2019-02-12 07:12] LABS: HEMATOCRIT 23.9 % (32.4-45.2); HEMOGLOBIN 8.4 GM/dL (10.7-15.3); MCH 33.7 pg (25.7-33.7); MCHC 35.3 g/dl (32.0-36.0); MEAN CELL VOLUME 95.6 fl (80-96); MEAN PLT VOLUME 8.6 fl (7.5-11.1); PLATELET COUNT 156 K/MM3 (134-434); RDW 13.9 % (11.6-15.6); WHITE BLOOD COUNT 9.6 K/mm3 (4.0-10.0)
[2019-02-12 07:13] LABS: ALBUMIN 2.6 g/dl (3.4-5.0); BILIRUBIN,TOTAL 0.5 mg/dL (0.2-1); BLOOD UREA NITROGEN 14.3 mg/dL (7-18); CALCIUM 8.2 mg/dL (8.5-10.1); CREATININE 0.6 mg/dL (0.55-1.3); POTASSIUM 3.9 mmol/L (3.5-5.1); TOT PROT 5.4 g/dl (6.4-8.2)
[2019-02-12] MEDS ORDERED: guaiFENesin 200 MG/10 ML 10 ML UNIT-DOSE CUPS PO ONE (08:09)
[2019-02-12] MEDS: DOCUSATE SODIUM 100 MG CAPSULE (FP) PO SCH ×2 (09:33→22:10)
[2019-02-12] MEDS: ENOXAPARIN NA (PORCINE) 40 MG/0.4 ML DISP.SYRIN SQ SCH (09:34)
[2019-02-12] MEDS: ASPIRIN 325 MG TABLET PO SCH (09:37)
--- NOTE | 2019-02-12 09:55 | PN ---
Progress Note, Physician Chief Complaint: S/P bilateral mastectomy with sentinel node biopsies and CHRISTAL reconstruction POD #2 History of Present Illness: Patient was seen this am in the ICU and was noted to be sitting in the chair eating breakfast. She reports sore throat and cough. She is voiding but has not had a bowel movement yet. She reports good pain control. - Current Medication List Current Medications: Active Medications Acetaminophen (Ofirmev Injection -) 1,000 mg IVPB Q6H PRN PRN Reason: Pain 6 -10 OR FEVER Last Admin: 02/12/19 03:35 Dose: 1,000 mg Aspirin (Asa -) 325 mg PO DAILY [facility] Last Admin: 02/12/19 09:37 Dose: 325 mg Benzocaine/Menthol (Cepacol Lozenge -) 1 each MM PRN PRN PRN Reason: SORE THROAT Last Admin: 02/12/19 04:51 Dose: 1 each Diazepam (Valium -) 5 mg PO Q8H PRN PRN Reason: ANXIETY Docusate Sodium (Colace -) 100 mg PO BID [facility] Last Admin: 02/12/19 09:33 Dose: 100 mg Enoxaparin Sodium (Lovenox -) 40 mg SQ DAILY [facility] Last Admin: 02/12/19 09:34 Dose: 40 mg Fentanyl (Sublimaze Injection -) 25 mcg IVPUSH ONCE PRN PRN Reason: PAIN LEVEL 6-10 Stop: 02/12/19 12:03 Last Admin: 02/11/19 14:09 Dose: 25 mcg Cefazolin Sodium 1 gm/ (Dextrose) 50 mls @ 100 mls/hr IVPB Q6H [facility] Last Admin: 02/12/19 09:34 Dose: 100 mls/hr Ondansetron HCl (Zofran Injection) 4 mg IVPUSH Q6H PRN PRN Reason: NAUSEA AND/OR VOMITING Oxycodone HCl (Roxicodone -) 10 mg PO Q4H PRN PRN Reason: PAIN LEVEL 6-10 Last Admin: 02/11/19 06:20 Dose: 10 mg Oxycodone HCl (Roxicodone -) 5 mg PO Q4H PRN PRN Reason: PAIN LEVEL 1-5 Last Admin: 02/11/19 15:18 Dose: 5 mg - Objective Vital Signs: Vital Signs Temperature 99.3 F 02/12/19 02:00 Pulse Rate 74 02/12/19 08:00 Respiratory Rate 16 02/12/19 08:00 Blood Pressure 116/59 L 02/12/19 08:00 O2 Sat by Pulse Oximetry (%) 93 L 02/11/19 21:00 Constitutional: Yes: Well Nourished, Calm Gastrointestinal: Yes: Other (Umbilical incision slightly erythematous without purulent disharge noted. The abdominal incisionswith dressing in place. JPs are all intact and maintaining suction with serosanginous discharge.) Breast(s): Yes: Other (Flaps with steristrips in place. No erythema or discharge noted. The flaps are warm to touch with good color. Bilateral flap pulses were detected via doppler although the left is more prominent then the right.) Labs: CBC, BMP 02/12/19 06:15 02/12/19 06:15 Problem List - Problems (1) Bilateral breast cancer Code(s): C50.911 - MALIGNANT NEOPLASM OF UNSP SITE OF RIGHT FEMALE BREAST; C50.912 - MALIGNANT NEOPLASM OF UNSPECIFIED SITE OF LEFT FEMALE BREAST Qualifiers: Breast location: overlapping sites of breast Estrogen receptor status: positive Patient sex: female Qualified Code(s): C50.811 - Malignant neoplasm of overlapping sites of right female breast; C50.812 - Malignant neoplasm of overlapping sites of left female breast; Z17.0 - Estrogen receptor positive status [ER+] Assessment/Plan Assessment: S/p bilateral mastectomy and snbx with CHRISTAL reconstruction POD#2 Plan: -Continue CHRISTAL management protocol as directed. -Encourage deep breathing and coughing utilizing pillow in the abdominal area for support. -student services dean to arrange visiting nurse services at home for planned discharge tomorrow. -Monitor vitals per protocol.
--- NOTE | 2019-02-12 10:17 | PN ---
Progress Note (short form) - Note Progress Note: POD#2 Pt oob to chair this am. Took several steps with PT yesterday and was oob to chair. Slight nausea with oral pain meds. Passing fla Vital Signs Period Temp Pulse Resp BP Sys/Loza Pulse Ox Last 24 Hr 99 F-100.4 F 62-77 14-22 99-126/53-62 93 LOLI: Left abd: 45ml Left breast: 140ml Right abd: 40ml Right breast: 45ml all drains serosangrenous GEN: A&0x3, NAD Breast: b/l with good doppler signal. Breast flap with good cap refill. Incisions c/d/i. ABD: incision c/d/i laterally. Midline abd inc with ischemia to the edges, intact blister superior edges. One area where the skin has a tear. Umbilicus with some ischemia. Incision c/d/i. CBC, BMP /15/19 06:15 08/15/19 06:15 A/P: s/p b/l mastectomy with CHRISTAL reconstruction/POD#2 oob to chair and ambulate with PT Xerform to umbilicus and lower abd incision Continue IV abx DVT ppx with lovenox and aspirin D/w Dr. Sanchez
--- NOTE | 2019-02-12 11:37 | PN ---
Physical Exam: SUBJECTIVE: Patient seen and examined at the bedside, there were no acute events overnight. The patient is having some minor nose bleeds due to the dry air in the hospital. Additionally she states her throat is still bothering her somewhat. Patient states her pain is improving. OBJECTIVE: Vital Signs Period Temp Pulse Resp BP Sys/Loza Pulse Ox Last 24 Hr 99 F-100.4 F 62-77 14-22 99-130/53-62 93-93 GENERAL: The patient is awake, alert, and fully oriented, in no acute distress. HEAD: Normal with no signs of trauma. EYES: PERRL, extraocular movements intact, sclera anicteric, conjunctiva clear. No ptosis. ENT: Ears normal, nares patent, oropharynx clear without exudates, dry mucous membranes. NECK: Trachea midline, full range of motion, supple. LUNGS: Breath sounds equal, clear to auscultation bilaterally, no wheezes, no crackles, no accessory muscle use. HEART: Regular rate and rhythm, S1, S2 without murmur, rub or gallop. CHEST: Surgical area not observed at this time. Support in place ABDOMEN: Soft, nontender, nondistended, normoactive bowel sounds, incision is c/ d/i without exudate or erythema surrounding the area. EXTREMITIES: 2+ pulses, warm, well-perfused, no edema. NEUROLOGICAL: Cranial nerves II through XII grossly intact. Normal speech, gait not observed. PSYCH: Normal mood, normal affect. SKIN: Warm, dry, normal turgor, no rashes or lesions noted Laboratory Results - last 24 hr 02/12/19 02/12/19 06:15 06:15 WBC 9.6 RBC 2.50 L Hgb 8.4 L Hct 23.9 L MCV 95.6 MCH 33.7 MCHC 35.3 RDW 13.9 Plt Count 156 MPV 8.6 Sodium 139 Potassium 3.9 Chloride 106 Carbon Dioxide 30 Anion Gap 4 L BUN 14.3 Creatinine 0.6 Est GFR (CKD-EPI)AfAm 118.93 Est GFR (CKD-EPI)NonAf 102.61 Random Glucose 115 H Calcium 8.2 L Total Bilirubin 0.5 AST 16 ALT 9 L Alkaline Phosphatase 49 Total Protein 5.4 L Albumin 2.6 L Active Medications Generic Name Dose Route Start Last Admin Trade Name Freq PRN Reason Stop Dose Admin Acetaminophen 1,000 mg 02/11/19 19:37 02/12/19 03:35 Ofirmev Injection - IVPB 1,000 mg Q6H PRN Administration Pain 6 -10 OR FEVER Aspirin 325 mg 02/10/19 20:10 02/12/19 09:37 Asa - PO 325 mg DAILY [facility] Administration Benzocaine/Menthol 1 each 02/12/19 04:24 02/12/19 04:51 Cepacol Lozenge - MM 1 each PRN PRN Administration SORE THROAT Diazepam 5 mg 02/10/19 17:26 Valium - PO Q8H PRN ANXIETY Docusate Sodium 100 mg 02/10/19 22:00 02/12/19 09:33 Colace - PO 100 mg BID [facility] Administration Enoxaparin Sodium 40 mg 02/11/19 10:00 02/12/19 09:34 Lovenox - SQ 40 mg DAILY [facility] Administration Fentanyl 25 mcg 02/11/19 12:04 02/11/19 14:09 Sublimaze Injection - IVPUSH 02/12/19 12:03 25 mcg ONCE PRN Administration PAIN LEVEL 6-10 Cefazolin Sodium 1 gm/ 50 mls @ 100 mls/hr 02/11/19 04:00 02/12/19 09:34 Dextrose IVPB 100 mls/hr Q6H [facility] Administration Ondansetron HCl 4 mg 02/10/19 17:25 Zofran Injection IVPUSH Q6H PRN NAUSEA AND/OR VOMITING Oxycodone HCl 10 mg 02/10/19 17:26 02/11/19 06:20 Roxicodone - PO 10 mg Q4H PRN Administration PAIN LEVEL 6-10 Oxycodone HCl 5 mg 02/11/19 13:45 02/11/19 15:18 Roxicodone - PO 5 mg Q4H PRN Administration PAIN LEVEL 1-5 ASSESSMENT/PLAN: Ms. Morrell is a 53yo F with h/o of new L and R breast Ca who presents today after bilateral mastectomies with sentinel node biopsies and CHRISTAL flap construction. She is POD#1. POD#1 b/l Mastectomies, sentinel node bx, and CHRISTAL reconstruction Mixed HLD (pre-op labs) Macrocytic anemia (pre-op labs) Neurologic/ MSK -- Pain management --Oxycodone 5mg/10mg choice q4h PRN for pain levels --Fentanyl 25mcg IVpush PRN for breakthrough pain --OOB/ PT Cardiovascular --Qshift CHRISTAL doppler checks --Monitor BP and bolus PRN to maintain MAP 65+ for maintenance of CHRISTAL --ASA 325mg now as per surgical team --To continue daily Pulmonary --Incentive spirometry> continue GI --Zofran and Phenergan on board for post-op nausea ID --Post-op abx per SCIP protocol FEN: Fluids: D5-1/2NS@125cc/hr Electrolyte abnormalities: Pre-op labs - none Nutrition: regular diet PPX: DVT -Lovenox 40 SQ GI - Not indicated currently Dispo: Patient is currently stable and safe for transfer to medical floor for further management/ post-operative care. Case discussed with surgical team Visit type - Emergency Visit Emergency Visit: No - New Patient This patient is new to me today: No - Critical Care Critical Care patient: Yes Total Critical Care Time (in minutes): 40 Critical Care Statement: The care of this patient involved high complexity decision making to prevent further life threatening deterioration of the patient 's condition and/or to evaluate & treat vital organ system(s) failure or risk of failure. ATTENDING PHYSICIAN STATEMENT I saw and evaluated the patient. I reviewed the resident's note and discussed the case with the resident. I agree with the resident's findings and plan as documented. SUBJECTIVE: OBJECTIVE: ASSESSMENT AND PLAN:
--- NOTE | 2019-02-12 13:03 | PN ---
Teaching Attending Note Name of Resident: Opal Sampson ATTENDING PHYSICIAN STATEMENT I saw and evaluated the patient. I reviewed the resident's note and discussed the case with the resident. I agree with the resident's findings and plan as documented. SUBJECTIVE: Patient seen and examined in the ICU. Awake and alert. Less pain. Breathing seems better. Seen by surgery -> good doppler pulses Intake & Output 02/09/19 02/10/19 02/11/19 02/12/19 23:59 23:59 23:59 23:59 Intake Total 4050 3180 200 Output Total 1117 3245 425 Balance 2933 -65 -225 Weight 166 lb 166 lb Last Vital Signs Temp Pulse Resp BP Pulse Ox 99.2 F 74 16 125/68 93 L 02/12/19 10:00 02/12/19 12:00 02/12/19 12:00 02/12/19 12:00 02/12/19 09:00 Active Medications Acetaminophen (Ofirmev Injection -) 1,000 mg IVPB Q6H PRN PRN Reason: Pain 6 -10 OR FEVER Last Admin: 02/12/19 03:35 Dose: 1,000 mg Aspirin (Asa -) 325 mg PO DAILY [facility] Last Admin: 02/12/19 09:37 Dose: 325 mg Benzocaine/Menthol (Cepacol Lozenge -) 1 each MM PRN PRN PRN Reason: SORE THROAT Last Admin: 02/12/19 04:51 Dose: 1 each Diazepam (Valium -) 5 mg PO Q8H PRN PRN Reason: ANXIETY Docusate Sodium (Colace -) 100 mg PO BID [facility] Last Admin: 02/12/19 09:33 Dose: 100 mg Enoxaparin Sodium (Lovenox -) 40 mg SQ DAILY [facility] Last Admin: 02/12/19 09:34 Dose: 40 mg Cefazolin Sodium 1 gm/ (Dextrose) 50 mls @ 100 mls/hr IVPB Q6H [facility] Last Admin: 02/12/19 09:34 Dose: 100 mls/hr Ondansetron HCl (Zofran Injection) 4 mg IVPUSH Q6H PRN PRN Reason: NAUSEA AND/OR VOMITING Oxycodone HCl (Roxicodone -) 10 mg PO Q4H PRN PRN Reason: PAIN LEVEL 6-10 Last Admin: 02/11/19 06:20 Dose: 10 mg Oxycodone HCl (Roxicodone -) 5 mg PO Q4H PRN PRN Reason: PAIN LEVEL 1-5 Last Admin: 02/11/19 15:18 Dose: 5 mg GENERAL: awake, alert, and oriented HEENT: NC/AT, EOMi, JAYA, sclera anicteric, pallor noted, dry mucosa NECK: No JVD . LUNGS: CTA apically bilaterally. No wheezes, and no crackles. No accessory muscle use. HEART: RRR, normal S1 and S2 without murmur CHEST: Surgical area not observed at this time. Support in place ABDOMEN: Soft, NT/ND, hypoactive bowel sounds, no guarding. : Aguilera in place draining EXTREMITIES: 2+ DP pulses, warm, well-perfused. No calf tenderness. No peripheral edema. SCDs in place PSYCHIATRIC: Cooperative. Good eye contact. Appropriate mood and affect. SKIN: Warm, dry, no rashes or lesions noted. Laboratory Results - last 24 hr 02/12/19 02/12/19 06:15 06:15 WBC 9.6 RBC 2.50 L Hgb 8.4 L Hct 23.9 L MCV 95.6 MCH 33.7 MCHC 35.3 RDW 13.9 Plt Count 156 MPV 8.6 Sodium 139 Potassium 3.9 Chloride 106 Carbon Dioxide 30 Anion Gap 4 L BUN 14.3 Creatinine 0.6 Est GFR (CKD-EPI)AfAm 118.93 Est GFR (CKD-EPI)NonAf 102.61 Random Glucose 115 H Calcium 8.2 L Total Bilirubin 0.5 AST 16 ALT 9 L Alkaline Phosphatase 49 Total Protein 5.4 L Albumin 2.6 L ASSESSMENT/PLAN: POD#2: Bilateral Mastectomies, sentinel node bx, and CHRISTAL reconstruction HLD Macrocytic anemia Flap checks per surgery Pain control Encourage Incentive Spirometry ASA 325mg OD VTE prophylaxis PO as tolerated Floor when OK with surgery Dr Haynes
--- NOTE | 2019-02-12 19:27 | PN ---
Progress Note, Physician Chief Complaint: Bilateral breast cancer; right upper outer quadrant and left overlapping multifocal History of Present Illness: The patient was diagnosed with bilateral breast cancer with the left breast cancer HER2+. She underwent neoadjuvant CTX with TCHP with good clinical response. She decided on bilateral mastectomies and CHRISTAL flap reconstructions which was performed on February 10, 2019 and is admitted postoperatively for flap monitoring and wound care/pain control. - Current Medication List Current Medications: Active Medications Acetaminophen (Ofirmev Injection -) 1,000 mg IVPB Q6H PRN PRN Reason: Pain 6 -10 OR FEVER Last Admin: 02/12/19 03:35 Dose: 1,000 mg Aspirin (Asa -) 325 mg PO DAILY [facility] Last Admin: 02/12/19 09:37 Dose: 325 mg Benzocaine/Menthol (Cepacol Lozenge -) 1 each MM PRN PRN PRN Reason: SORE THROAT Last Admin: 02/12/19 04:51 Dose: 1 each Diazepam (Valium -) 5 mg PO Q8H PRN PRN Reason: ANXIETY Docusate Sodium (Colace -) 100 mg PO BID [facility] Last Admin: 02/12/19 09:33 Dose: 100 mg Enoxaparin Sodium (Lovenox -) 40 mg SQ DAILY [facility] Last Admin: 02/12/19 09:34 Dose: 40 mg Cefazolin Sodium 1 gm/ (Dextrose) 50 mls @ 100 mls/hr IVPB Q6H [facility] Last Admin: 02/12/19 16:56 Dose: 100 mls/hr Ondansetron HCl (Zofran Injection) 4 mg IVPUSH Q6H PRN PRN Reason: NAUSEA AND/OR VOMITING Oxycodone HCl (Roxicodone -) 10 mg PO Q4H PRN PRN Reason: PAIN LEVEL 6-10 Last Admin: 02/11/19 06:20 Dose: 10 mg Oxycodone HCl (Roxicodone -) 5 mg PO Q4H PRN PRN Reason: PAIN LEVEL 1-5 Last Admin: 02/11/19 15:18 Dose: 5 mg - Objective Vital Signs: Vital Signs Temperature 99.4 F 02/12/19 18:00 Pulse Rate 78 02/12/19 18:00 Respiratory Rate 16 02/12/19 18:00 Blood Pressure 134/61 02/12/19 18:00 O2 Sat by Pulse Oximetry (%) 93 L 02/12/19 09:00 Constitutional: Yes: Well Nourished, No Distress, Calm Eyes: Yes: WNL HENT: Yes: Atraumatic, Normocephalic Neck: Yes: WNL Cardiovascular: Yes: Regular Rate and Rhythm Respiratory: Yes: Regular, CTA Bilaterally Gastrointestinal: Yes: Normal Bowel Sounds, Soft ...Rectal Exam: Yes: Deferred Genitourinary: Yes: WNL Breast(s): Yes: Other (CHRISTAL flaps warm and viable with good dopplerable pulses. Skin flaps warm and viable. Middle of abdomiinal wound with some ecchymosis but stable. Drains functioning well) Musculoskeletal: Yes: WNL Extremities: Yes: WNL Integumentary: Yes: WNL Wound/Incision: Yes: Clean/Dry, Open to air Neurological: Yes: Alert, Oriented ...Motor Strength: WNL Labs: CBC, BMP 02/12/19 06:15 02/12/19 06:15 Problem List - Problems (1) Bilateral breast cancer Assessment/Plan: The patient is doing well POD#3 s/p bilateral total mastectomies with bilateral sentinel lymph node biopsies with bilateral CHRISTAL flap reconstructions. She has good pain control. Drains functioning well. CHRISTAL flaps and mastectomy flaps warm and viable. Good dopplerable signals. Patient has been OOB and ambulating with assistance. Tolerating diet. Continue antibiotics and pain medication. Hct with downward drift (24%) but no need for transfusion since patient assymptomatic. Plan for discharge tomorrow AM. Home on percocet for pain and cefadroxil antibiotics. Follow up in my office next week. VNS being set up for discharge tomorrow. Patient to keep compressive bra in place night/ day. Refrain from any strenuous activity. No bath/shower until drains removed. record drain outputs daily. Code(s): C50.911 - MALIGNANT NEOPLASM OF UNSP SITE OF RIGHT FEMALE BREAST; C50.912 - MALIGNANT NEOPLASM OF UNSPECIFIED SITE OF LEFT FEMALE BREAST Qualifiers: Breast location: overlapping sites of breast Estrogen receptor status: positive Patient sex: female Qualified Code(s): C50.811 - Malignant neoplasm of overlapping sites of right female breast; C50.812 - Malignant neoplasm of overlapping sites of left female breast; Z17.0 - Estrogen receptor positive status [ER+]
[2019-02-13] MEDS ORDERED: SODIUM CHLORIDE NASAL SPRAY 44 ML BOTTLE NS PRN (02:31)
[2019-02-13] MEDS ORDERED: DEXTROSE 5%-WATER - 50 ML IVPB ONE (03:14)
[2019-02-13] MEDS ORDERED: ceFAZolin SODIUM 1 GM VIAL ONE (03:14)
[2019-02-13] MEDS: CEFAZOLIN 1 GM in DEXTROSE 5%-WATER - 50 ML IVPB SCH (03:24)
[2019-02-13] MEDS: ACETAMINOPHEN 1000 MG/100 ML VIAL (NON FORMULARY) IVPB PRN (03:25)
[2019-02-13] MEDS ORDERED: PROCHLORPERAZINE MALEATE 5 MG TABLET PO PRN (07:32)
[2019-02-13 07:48] VITALS: TEMP 98.6
--- NOTE | 2019-02-13 07:48 | PN ---
Physical Exam: SUBJECTIVE: Pt with low-grade temperature (100.4) overnight. Pt has been receiving Tylenol for pain however pt's temperature immediately decreased since reading. Pt endorses some nausea this morning, but does not want Zofran because it gives her headaches. No other complaints today. OBJECTIVE: Vital Signs Period Temp Pulse Resp BP Sys/Loza Pulse Ox Last 24 Hr 98.5 F-100.2 F 72-82 15-21 110-134/55-84 93-95 GENERAL: NAD, awake, alert, and fully oriented HEENT: JAYA, sclera anciteric, MMM NECK: No JVD. LUNGS: CTA bilaterally at the bases, no wheezes, no crackles, no accessory muscle use. CHEST: Biopatch noted to have clot around (R br LOLI); changed today. R Br LOLI drain with serosanguinous drainage noted. Other LOLI's minimal drainage HEART: RRR, S1, S2 without murmur ABDOMEN: Soft, Nt/ND, normoactive bowel sounds, no guarding EXTREMITIES: 2+ DP pulses, warm, well-perfused, no edema. PSYCH: Normal mood, normal affect. SKIN: Warm, dry, no rashes Laboratory Results 02/12/19 06:15 WBC 9.6 RBC 2.50 L Hgb 8.4 L Hct 23.9 L MCV 95.6 MCH 33.7 MCHC 35.3 RDW 13.9 Plt Count 156 MPV 8.6 Active Medications Generic Name Dose Route Start Last Admin Trade Name Freq PRN Reason Stop Dose Admin Acetaminophen 1,000 mg 02/11/19 19:37 02/13/19 03:25 Ofirmev Injection - IVPB 1,000 mg Q6H PRN Administration Pain 6 -10 OR FEVER Aspirin 325 mg 02/10/19 20:10 02/12/19 09:37 Asa - PO 325 mg DAILY [facility] Administration Benzocaine/Menthol 1 each 02/12/19 04:24 02/12/19 04:51 Cepacol Lozenge - MM 1 each PRN PRN Administration SORE THROAT Cephalexin HCl 500 mg 02/13/19 10:00 Keflex - PO BID [facility] Diazepam 5 mg 02/10/19 17:26 Valium - PO Q8H PRN ANXIETY Docusate Sodium 100 mg 02/10/19 22:00 02/12/19 22:10 Colace - PO Not Given BID [facility] Enoxaparin Sodium 40 mg 02/11/19 10:00 02/12/19 09:34 Lovenox - SQ 40 mg DAILY [facility] Administration Oxycodone HCl 10 mg 02/10/19 17:26 02/11/19 06:20 Roxicodone - PO 10 mg Q4H PRN Administration PAIN LEVEL 6-10 Oxycodone HCl 5 mg 02/11/19 13:45 02/11/19 15:18 Roxicodone - PO 5 mg Q4H PRN Administration PAIN LEVEL 1-5 Prochlorperazine Maleate 5 mg 02/13/19 07:32 Compazine - PO Q4H PRN NAUSEA AND/OR VOMITING Sodium Chloride 2 spray 02/13/19 02:31 02/13/19 03:25 [place] Nasal [place] - NS 2 spray TID PRN Administration NASAL CONGESTION ASSESSMENT/PLAN: POD#0 b/l Mastectomies, sentinel node bx, and CHRISTAL reconstruction Normocytic anemia Anxiety Mixed HLD (pre-op labs) --Pt was given a lab vacation, however in lieu of low-grade temps will obtain CBC for possible leukocytosis --Will switch ABX to Keflex (Cefaroxil not on formulary; 1st gen. cephalosporin) --Add Compazine 5mg q4h PO PRN for nausea --Continue Oxycodone 10mg or 5mg q4h based on pain scale --Colace 100mg BID while on opiate medications --ASA 325mg qdaily --Continue Valium 5mg q8h PRN FEN: Fluids: Not indicated; tolerating PO Electrolyte abnormalities: Lab vacation today Nutrition: Tolerating regular diet PPX: DVT - Lovenox SQ daily GI - No indication currently Dispo: D/c vs. M/S pending surgical team Case discussed with Dr. Haynes and surgical team Chaitanya Fitzpatrick, DO - IM PGY-3 Visit type - Emergency Visit Emergency Visit: Yes ED Registration Date: 02/10/19 Care time: The patient presented to the Emergency Department on the above date and was hospitalized for further evaluation of their emergent condition. - New Patient This patient is new to me today: No - Critical Care Critical Care patient: No
[2019-02-13] MEDS ORDERED: PT OWN MED DRAWER 7, Y5N ONE ×2 (09:01→10:50)
[2019-02-13] MEDS: ASPIRIN 325 MG TABLET PO SCH (09:06)
[2019-02-13] MEDS: DOCUSATE SODIUM 100 MG CAPSULE (FP) PO SCH (09:06)
[2019-02-13] MEDS: ENOXAPARIN NA (PORCINE) 40 MG/0.4 ML DISP.SYRIN SQ SCH (09:07)
[2019-02-13] MEDS ORDERED: CEPHALEXIN MONOHYDRATE 500 MG CAPSULE (UD) PO SCH (10:00)
[2019-02-13 10:04] LABS: BASO % 0.3 % (0-2.0); EOS % 0.1 % (0-4.5); HEMATOCRIT 24.9 % (32.4-45.2); HEMOGLOBIN 8.5 GM/dL (10.7-15.3); LYMPH % 7.7 % (8-40); MCH 33.2 pg (25.7-33.7); MCHC 34.3 g/dl (32.0-36.0); MEAN CELL VOLUME 96.8 fl (80-96); MEAN PLT VOLUME 8.9 fl (7.5-11.1); MONO % 7.7 % (3.8-10.2); NEUT % 84.2 % (42.8-82.8); PLATELET COUNT 157 K/MM3 (134-434); RBC 2.57 M/mm3 (3.60-5.2); RDW 13.8 % (11.6-15.6); WHITE BLOOD COUNT 8.4 K/mm3 (4.0-10.0)
--- NOTE | 2019-02-13 12:02 | PN ---
Teaching Attending Note Name of Resident: Chaitanya Fitzpatrick ATTENDING PHYSICIAN STATEMENT I saw and evaluated the patient. I reviewed the resident's note and discussed the case with the resident. I agree with the resident's findings and plan as documented. SUBJECTIVE: Patient seen and examined in the ICU. Awake and alert. Less pain. Breathing seems better. Noted to have blood oozing around Right abdominal drain Intake & Output 02/10/19 02/11/19 02/12/19 02/13/19 23:59 23:59 23:59 23:59 Intake Total 4050 3180 1080 300 Output Total 1117 3245 2440 715 Balance 2933 -65 -1360 -415 Weight 166 lb Last Vital Signs Temp Pulse Resp BP Pulse Ox 98.6 F 84 18 116/66 95 02/13/19 10:49 02/13/19 09:00 02/13/19 09:00 02/13/19 10:49 02/12/19 21:00 Active Medications Acetaminophen (Ofirmev Injection -) 1,000 mg IVPB Q6H PRN PRN Reason: Pain 6 -10 OR FEVER Last Admin: 02/13/19 03:25 Dose: 1,000 mg Aspirin (Asa -) 325 mg PO DAILY [facility] Last Admin: 02/13/19 09:06 Dose: 325 mg Benzocaine/Menthol (Cepacol Lozenge -) 1 each MM PRN PRN PRN Reason: SORE THROAT Last Admin: 02/12/19 04:51 Dose: 1 each Cephalexin HCl (Keflex -) 500 mg PO BID [facility] Last Admin: 02/13/19 10:51 Dose: 500 mg Diazepam (Valium -) 5 mg PO Q8H PRN PRN Reason: ANXIETY Docusate Sodium (Colace -) 100 mg PO BID [facility] Last Admin: 02/13/19 09:06 Dose: 100 mg Enoxaparin Sodium (Lovenox -) 40 mg SQ DAILY [facility] Last Admin: 02/13/19 09:07 Dose: 40 mg Oxycodone HCl (Roxicodone -) 10 mg PO Q4H PRN PRN Reason: PAIN LEVEL 6-10 Last Admin: 02/11/19 06:20 Dose: 10 mg Oxycodone HCl (Roxicodone -) 5 mg PO Q4H PRN PRN Reason: PAIN LEVEL 1-5 Last Admin: 02/11/19 15:18 Dose: 5 mg Prochlorperazine Maleate (Compazine -) 5 mg PO Q4H PRN PRN Reason: NAUSEA AND/OR VOMITING Last Admin: 02/13/19 08:40 Dose: 5 mg Sodium Chloride ([place] Nasal [place] -) 2 spray NS TID PRN PRN Reason: NASAL CONGESTION Last Admin: 02/13/19 03:25 Dose: 2 spray GENERAL: awake, alert, and oriented HEENT: NC/AT, EOMi, JAYA, sclera anicteric, pallor noted, dry mucosa NECK: No JVD . LUNGS: CTA apically bilaterally. No wheezes, and no crackles. No accessory muscle use. HEART: RRR, normal S1 and S2 without murmur CHEST: Surgical area not observed at this time. Support in place ABDOMEN: Soft, NT/ND, (+) BS, (+) drains intact with saturated dressing EXTREMITIES: 2+ DP pulses, warm, well-perfused. No calf tenderness. No peripheral edema. SCDs in place PSYCHIATRIC: Cooperative. Good eye contact. Appropriate mood and affect. SKIN: Warm, dry, no rashes or lesions noted. Laboratory Results - last 24 hr 02/13/19 09:40 WBC 8.4 RBC 2.57 L Hgb 8.5 L Hct 24.9 L MCV 96.8 H MCH 33.2 MCHC 34.3 RDW 13.8 Plt Count 157 MPV 8.9 Absolute Neuts (auto) 7.1 Neutrophils % 84.2 H Lymphocytes % 7.7 L D Monocytes % 7.7 Eosinophils % 0.1 Basophils % 0.3 Nucleated RBC % 0 ASSESSMENT/PLAN: POD#3: Bilateral Mastectomies, sentinel node bx, and CHRISTAL reconstruction HLD Macrocytic anemia Drain to be assessed by surgery Flap checks per surgery Pain control Encourage Incentive Spirometry ASA 325mg OD VTE prophylaxis PO as tolerated Floor versus DC when OK with surgery Dr Haynes
[2019-02-13 12:18] VITALS: BP 106/65; PULSE 72
--- NOTE | 2019-02-13 14:49 | PN ---
Progress Note (short form) - Note Progress Note: Pt seen earlier this am. She states that she is passing flatus. Slight nausea. No CP/SOB. Nurses had to change the RLQ abd dressing because of bleeding around the drain. Selected Entries 02/13/19 02/13/19 09:00 10:49 Temperature 98.6 F Pulse Rate 84 Blood Pressure 116/66 LOLI: Left abd-45ml Right abd-30ml Left breast 110 ml Right breast 60ml, drains becoming serosangrenous GEN: A&0x3, NAD ABD: incision c/d/i laterally. Midline abd inc with dusky edges, intact blister superior edges(several). One area where the skin has a tear. Umbilicus with some dusky tissue. Incision c/d/i. All drains stripped. RL abdomen drain didn' t appear to be working properly, it seemed clogged. New bulb placed to the drain and the Loli was flushed with 15ml NS. When checked later on, some light pink drainage on the gauze to this drain. Some new drainage noted within the LOLI. Breast: flaps with good cap refill and color, and good doppler signals. Lateral edge of breast with small blister along the suture line. LE: no calf tenderness or swelling noted b/l. CBC, BMP 02/13/19 09:40 02/12/19 06:15 A/p: 53 yo female s/p b/l mastectomy with CHRISTAL resconstruciton, POD#3 Plan for discharge to home with VNS, updated discharge instructions regarding drain care and xeroform to blister midline abd scar. Added aspirin, colace and iron to discharge medications Fitted pt with new surgical bra/small opening for breast flaps. Case D/w Dr. Sanchez
--- NOTE | 2019-02-14 12:39 | OP ---
DATE OF OPERATION: 02/10/2019 PREOPERATIVE DIAGNOSIS: 1. Right breast cancer. 2. Left breast cancer. 3. Acquired absence of bilateral breasts and nipples. POSTOPERATIVE DIAGNOSIS: 1. Right breast cancer. 2. Left breast cancer. 3. Acquired absence of bilateral breasts and nipples. PROCEDURES: 1. Immediate right breast reconstruction with deep inferior epigastric professor of floriculture microvascular free flap (566 g). 2. Immediate left breast reconstruction with deep inferior epigastric professor of floriculture microvascular free flap (666 g). 3. Bilateral partial 3rd rib resection. 4. Bilateral exploration of internal mammary vessels with extensive adventitiectomy. 5. Bilateral mastectomy skin flap and lower abdominal flap intraoperative angiography using indocyanine green. 6. Bilateral intraoperative angiography imaging processing and interpretation. 7. Bilateral ultrasound-guided transverse abdominis plane regional nerve blocks. ATTENDING SURGEON: Andi Bruner MD CO-SURGEON: Estee Sanchez MD BREAST SURGEON: Carlos Eduardo Montalvo MD ANESTHESIA: General endotracheal. ESTIMATED BLOOD LOSS: 200 mL. SPECIMEN: 1. Right total mastectomy to Pathology (607 g). 2. Left total mastectomy to Pathology (578 g). DRAINS: 1. A No. 15 round Flaco drain x1 to right breast. 2. A No. 15 round Flaco drain x1 to left breast. 3. A No. 15 round Flaco drain x2 to abdomen. COMPLICATIONS: None. CONDITION: Stable to recovery room, extubated. INDICATIONS: The patient is a 53-year-old female with a recent diagnosis of bilateral breast cancer. She has undergone neoadjuvant chemotherapy and now presents for definitive surgical management. The patient has been evaluated preoperatively and she is most appropriately a candidate for autologous reconstruction using her lower abdominal tissue. The risks, benefits, and alternatives of the reconstructive procedures were discussed with the patient preoperatively in detail, and all questions were answered. The risks include, but are not limited to, bleeding, infection, pain, need for revision or further surgery, partial or complete microvascular free flap loss, partial or complete skin flap loss. damage to neighboring structures including nerves, arteries, veins, and tendons. The patient understands these risks and has elected to proceed with surgery. PROCEDURE FOLLOWS: After proper identification and marking the patient in the preoperative holding area, the patient was transported to the operating room, placed supine on the table. While noninvasive anesthesia monitors were applied, intravenous access was established, general anesthesia was administered, and the patient was intubated without difficulty. SCD boots were applied to the bilateral lower extremities. Intravenous antibiotics were then given. A Aguilera catheter was then placed. At this point, subcutaneous heparin was then given, and the patients bilateral breasts as well as abdomen and flanks were then prepped and draped in the usual sterile fashion. After a time-out was performed, Dr. Montalvo from [facility] proceeded to perform bilateral skin-sparing mastectomies as well as bilateral axillary sentinel lymph node biopsies. These procedures will be all dictated separately. Concurrently, Dr. Sanchez and I began the reconstruction, working independently as co-surgeons with separate instrument setups. Attention was first turned towards the umbilicus where skin hooks were placed at the 12 and 6 o'clock positions. The umbilicus was circumferentially incised with a No. 15 blade. A periumbilical dissection was then performed with the Metzenbaum scissors with care taken to leave adequate periumbilical fat. Next, the superior and inferior limbs of the lower abdominal flap were incised with a No. 10 blade. Superior limb was carried down through the full thickness to the subcutaneous tissue with electrocautery with care taken to bevel slightly outwards. Once the anterior abdominal wall was reached, the superior abdominal skin flap was raised up to the xiphoid process in the midline and the costal margin bilaterally. Next, the inferior incision was carried down to the subcutaneous tissue in a [id number] fashion with electrocautery. Bilateral superficial inferior epigastric veins were identified. Microvascular instruments and techniques were used to perform proximal dissections along these veins until adequate length and caliber had been achieved. Care was taken to individually identify and circumferentially dissect, ligate, and divide side branches. Once the veins were adequately dissected, they were ligated and divided, and the remainder of the subcutaneous tissue dissected down to the anterior abdominal wall. Next, the lower abdominal flap was incised in the midline, and the dissection carried down through the full thickness of the subcutaneous tissue with electrocautery to the linear alba. Attention at this point was then turned towards the left lower abdominal flap. The left lower abdominal flap was raised from both medial and lateral directions just above the level of the anterior abdominal wall fascia. The dominant perforators from the inferior epigastric system were noted to be along the medial row, and there were noted to be 3 good sized perforators with strong Doppler signal. The decision was therefore made to base this flap off of the 3 medial row perforators. Therefore, the perforators were circumferentially dissected as they exited through the abdominal wall fascia. The fascia was then opened superiorly and inferiorly as well as the intervening fascia between the perforators. At this point, individual retrograde professor of floriculture dissections were performed through the full thickness to the rectus abdominis muscle fibers. Care was taken to divide the muscle fibers longitudinally as much as possible, and muscular side branches were individually identified, circumferentially dissected, ligated, and divided. Once the perforators were dissected down to their takeoffs from the inferior epigastric pedicle, the superior continuation of the pedicle was ligated and divided . At this point, a more proximal pedicle dissection was performed until adequate length and caliber had been achieved, and the inferior epigastric artery and accompanying veins were individually isolated. The remainder of the left lower abdominal flap was then raised off the anterior abdominal wall. It was then temporarily stapled in place. Doppler signal was achieved and marked on the skin with a 5-0 Prolene suture. A circular skin paddle in the center of the flap was then designed including the Doppler signal location, and the remainder of the flap was deepithelialized. At this point, attention was then turned to towards the right lower abdominal flap, which was raised in a similar fashion at the left side, and therefore only one side will be dictated. The right lower abdominal flap was noted to have a single dominant lateral row professor of floriculture located in the center of the flap, and the decision was made to base this flap off of this single dominant professor of floriculture. The professor of floriculture was dissected in a similar fashion as to the left side, and therefore, only one side will be dictated. Once the right lower abdominal flap was completely dissected, it was elevated off the anterior abdominal wall, stapled in place. Doppler signal was achieved and a skin paddle designed, and the remainder of the flap deepithelialized. At this point, Dr. Montalvo had finished bilateral mastectomies, and therefore, attention was turned towards the intraoperative angiography. The SPVirtual[employer] angiography system was brought into the field, and a 5-mL intravenous injection of indocyanine green was given. Bilateral mastectomy flap angiography, as well as lower abdominal flap angiography, was performed. The bilateral angiography images were then processed and relative perfusion data was used to assess the viability of the mastectomy skin flaps as well as the lower abdominal flaps. Areas of hypoperfusion were excised and discarded. Once this was completed, attention was turned towards the right breast pocket for harvesting of recipient vessels. The right breast pocket was copiously irrigated with warm saline solution, and all loose fat debris was removed. The interspace between the 2nd and 3rd ribs was identified. Self-retaining retractors were placed. The pectoralis major muscle was divided along the course of its fibers overlying this interspace. The pectoralis fibers were then retracted, and the periosteum and perichondrium and the superior surface of the 3rd rib was then incised. At this point, a circumferential subperiosteal and subperichondrial dissection was performed around the right 3rd rib. A large rongeur was then used to resect the right 3rd rib at the costochondral junction. On the deep surface, the periosteum and perichondrium were carefully incised and the underlying internal mammary artery with accompanying medial vein was identified. Microvascular instruments and techniques were then used to perform a formal exploration of the internal mammary vessels on the right side. Extensive adventitiectomy were performed on the artery as well as the accompanying medial vein. Once the vessels were adequate repaired on the right side, attention was turned towards the left breast pocket where the exact same procedures were performed in order to partially resect the left 3rd rib and explore the internal mammary vessels, and therefore, only one side will be dictated. At this point, attention was turned towards the microvascular transfers. The left lower abdominal flap was ligated and divided at the most proximal extent of the pedicle dissection. It was brought up to the right breast pocket. The flap was sterilely weighed and noted to weigh 566 g. The mastectomy specimen was noted to weigh 607 g. The flap was temporarily stapled in place and the microvascular anastomoses were performed. A 3.0-mm Synovis floorworker was used to anastomose the larger of the 2 veins of the inferior epigastric system to the antegrade stump of the internal mammary vein. Release of all clamps revealed good back flow across this anastomosis, and the remaining flap vein was ligated. Next, the arterial anastomosis between the internal mammary artery and the inferior epigastric artery was performed using an 8-0 nylon suture in a simple running fashion, and release of all clamps revealed good flow across this anastomosis. Next, a 2nd venous anastomosis between the superficial inferior epigastric vein and the retrograde stump of the internal mammary vein was performed using a 2.5-mm Synovis floorworker, and release of all clamps revealed good flow across this anastomosis, as well. At this point, the flap was evaluated for perfusion and was noted to have a strong biphasic Doppler signal on the skin paddle. It was therefore positioned into the right breast pocket. Care was taken to ensure good lie of the pedicle without twisting or kinking. Once this was confirmed, the flap was inset to the chest wall on multiple locations using a 2-0 Vicryl suture in a simple interrupted fashion. A No. 15 round Flaco drain was then placed into the right breast pocket and brought up through a separate stab incision laterally and secured to the skin with a 3-0 nylon suture. The right mastectomy skin flaps were then redraped and were closed to the microvascular free flap skin paddle using a 3-0 Monocryl in a buried deep dermal fashion followed by a 3-0 Monocryl Stratafix in a running subcuticular fashion. Once the right breast closure was completed, attention was then turned towards the microvascular transfer to the left breast. The lower abdominal flap was ligated and divided to the most proximal extent of the pedicle dissection. It was placed on sterile scale and noted to weigh 666 g. It was brought into the left breast pocket and stapled in place. The microvascular anastomoses were then performed. A 2.5-mm Synovis floorworker was used to anastomose the antegrade stump of the internal mammary vein to the larger of the 2 veins of the inferior epigastric system. Release of all clamps revealed good back flow across this anastomosis. Next, an arterial anastomosis between the internal mammary artery and the inferior epigastric artery was performed using an 8-0 nylon suture in a simple running fashion. Release of all clamps revealed good flow across this anastomosis, as well. Next, a 2nd venous anastomosis was performed between the retrograde stump of the internal mammary vein and the superficial inferior epigastric vein, again, using a 2.5-mm Synovis floorworker. Release of all clamps revealed good flow across this anastomosis. There was noted to be good perfusion to the microvascular free flap, and therefore, the flap was inset, and the left breast closed in a similar fashion as the right side, and therefor only one side will be dictated. Concurrently, closure of the abdomen was performed. The fascial incisions bilaterally were reapproximated in a primary fashion using a 0 V-Loc barbed suture in simple running fashion. Once this was completed, the ultrasound system was brought into the field and was sterilely draped. Bilateral transverse abdominis plane regional nerve blocks were then performed using a local anesthetic mixture of 20 mL of Exparel, 30 mL of 0.25% Marcaine, and 80 mL of normal saline. A total of 30 mL of the local anesthetic mixture were injected into each transverse abdominis plane, again under ultrasound guidance. Once the bilateral regional nerve blocks were completed, the patient was placed into a flexed position. Two No. 15 round Flaco drains were placed into the abdominal dissection pocket and brought out through separate stab incisions laterally and secured to skin with 3-0 nylon sutures. The superior abdominal skin flap was advanced and closed in layers using a 2-0 Vicryl in interrupted buried fashion to reapproximate Scarpas fascia followed by a 3-0 Monocryl in a buried deep dermal fashion following a 3-0 Monocryl Stratafix in a running subcuticular fashion. The site of the umbilicus transposition had been marked and a vertically oriented ellipse with a core of fat was excised and discarded. The umbilicus was transposed and inset using a 3-0 PDS in a buried deep dermal fashion followed by a 4-0 nylon in simple running fashion. At this point, sterile dressings were placed. The Doppler signal revealed good perfusion to bilateral microvascular free flaps, and there was note to be normal capillary refill, and therefore, the patient was slowly awakened and extubated without incident and was transported to recovery room in stable condition. Evaristo [id number]
--- NOTE | 2019-02-16 10:56 | PATH ---
Surgical Pathology Report Patient Name: JOB ROSAS [facility]. Rec. #: [id number] /Age/Gender: 1965 (Age: 53) / F Account: [id number] [facility] Taken: 02/10/2019 Received: 02/10/2019 Reported: 02/13/2019 Physicians: Carlos Eduardo Montalvo M.D. Specimen(s) Received A: LEFT AXILLARY SENTINEL LYMPH NODE #1 B: LEFT AXILLARY SENTINEL LYMPH NODE #2 C: RIGHT AXILLARY SENTINEL LYMPH NODE #1 D: RIGHT BREAST E: RIGHT BREAST UPPER OUTER QUADRANT ANTERIOR MARGIN F: LEFT BREAST G: LEFT BREAST ANTERIOR MARGIN 6:00 H: LEFT BREAST LATERAL ANTERIOR MARGIN Clinical History Bilateral breast cancer, S/p neoadjuvant therapy Intraoperative Consult Diagnosis A. LEFT AXILLARY SENTINEL LYMPH NODES BIOPSY #1, NO COUNT (FS): ONE LYMPH NODE, NEGATIVE FOR METASTATIC CARCINOMA. B. LEFT AXILLARY SENTINEL LYMPH NODES BIOPSY #2, COUNT 155 (FS): ONE LYMPH NODE, NEGATIVE FOR METASTATIC CARCINOMA. C. RIGHT AXILLARY SENTINEL LYMPH NODES BIOPSY #1, COUNT 353 (FS): ONE LYMPH NODE, NEGATIVE FOR METASTATIC CARCINOMA. Final Diagnosis A. LEFT AXILLARY SENTINEL LYMPH NODES #1, NO COUNT, EXCISION (FS): ONE LYMPH NODE, NEGATIVE FOR METASTATIC CARCINOMA ON SERIAL H&E SECTIONS AND CYTOKERATIN (AE1/3) IMMUNOSTAIN (0/1). B. LEFT AXILLARY SENTINEL LYMPH NODES #2, COUNT 155, EXCISION (FS): ONE LYMPH NODE, NEGATIVE FOR METASTATIC CARCINOMA ON SERIAL H&E SECTIONS AND CYTOKERATIN (AE1/3) IMMUNOSTAIN (0/1). C. RIGHT AXILLARY SENTINEL LYMPH NODES #1, COUNT 353, EXCISION (FS): ONE LYMPH NODE, NEGATIVE FOR METASTATIC CARCINOMA ON SERIAL H&E SECTIONS AND CYTOKERATIN (AE1/3) IMMUNOSTAIN (0/1). D. RIGHT BREAST, MASTECTOMY: INVASIVE DUCTAL CARCINOMA, MODERATELY DIFFERENTIATED (TUBULE SCORE 3/3, NUCLEAR GRADE: 2/3, MITOTIC SCORE: 1/3, TOTAL SCORE 6/9, RORY GRADE 2), MEASURING 0.7 CM IN GREATEST DIMENSION, MICROSCOPICALLY, IN A BACKGROUND OF DENSE HYALINIZED FIBROSIS. DUCTAL CARCINOMA IN SITU (DCIS) PRESENT, INTERMEDIATE NUCLEAR GRADE, SOLID AND CRIBRIFORM PATTERNS. SURGICAL MARGINS ARE UNINVOLVED BY CARCINOMA. INVASIVE CARCINOMA AND DCIS IS AT 4 MM FROM THE CLOSEST (ANTERIOR) MARGIN. ALSO SEE SPECIMEN E FOR FINAL ANTERIOR MARGIN. NO LYMPHOVASCULAR INVASION IS IDENTIFIED. SKIN AND NIPPLE ARE UNINVOLVED BY CARCINOMA. PRIOR BIOPSY SITE WITH REACTIVE CHANGES. PATHOLOGIC STAGE (ypTNM): ypT1b, ypN(sn)0 SEE ALSO INVASIVE CARCINOMA CASE SUMMARY BELOW. Comment: Immunohistochemical stain E-cadherin (block D7) performed and interpreted at [facility] shows membranous expression in the invasive carcinoma, consistent with a ductal phenotype. E. RIGHT BREAST UPPER OUTER QUADRANT ANTERIOR MARGIN, EXCISION: BENIGN BREAST TISSUE. NEGATIVE FOR MALIGNANCY. F. LEFT BREAST, MASTECTOMY: NO RESIDUAL INVASIVE CARCINOMA IDENTIFIED. DUCTAL CARCINOMA IN SITU (DCIS) PRESENT, HIGH NUCLEAR GRADE, CLINGING PATTERN, IN A BACKGROUND OF DENSE HYALINIZED FIBROSIS. SURGICAL MARGINS ARE UNINVOLVED BY DCIS. DCIS IS AT 2.7CM FROM THE CLOSEST (ANTERIOR) MARGIN. ALSO SEE SPECIMENS G AND H FOR FINAL MARGINS. REMAINING BREAST TISSUE SHOWS ATYPICAL LOBULAR HYPERPLASIA (ALH) AND FIBROCYSTIC CHANGE. SKIN AND NIPPLE ARE UNINVOLVED BY CARCINOMA. PRIOR BIOPSY SITE WITH REACTIVE CHANGES. PATHOLOGIC STAGE (ypTNM): ypTis, ypN(sn)0 SEE ALSO INVASIVE CARCINOMA CASE SUMMARY BELOW. Comment: Immunohistochemical stain E-cadherin (block F10) performed and interpreted at [facility] shows loss of membranous expression in the atypical lobular hyperplasia. G. LEFT BREAST ANTERIOR MARGIN 6:00, EXCISION: BENIGN FIBROADIPOSE TISSUE. NEGATIVE FOR MALIGNANCY. H. LEFT BREAST LATERAL ANTERIOR MARGIN, EXCISION: BENIGN FIBROADIPOSE TISSUE. NEGATIVE FOR MALIGNANCY. Comments Breast Invasive Carcinoma: Surgical Pathology Case Summary for the Right Breast (Based on AJCC TNM 8 th edition) Procedure _x_ Total mastectomy (including nipple-sparing and skin-sparing mastectomy) Specimen Laterality _x_ Right Tumor Size _x_ Greatest dimension of largest invasive focus >1 mm (millimeters): 7mm Histologic Type _x_ Invasive carcinoma of no special type (ductal, not otherwise specified) Histologic Grade ([place] Histologic Score) Glandular (Acinar)/Tubular Differentiation _X_ Score 3 (<10% of tumor area forming glandular/tubular structures) Nuclear Pleomorphism _X_ Score 2 Mitotic Rate _X_ Score 1 Overall Grade _X_ Grade 2 (scores of 6 or 7) Tumor Focality _X_ Single focus of invasive carcinoma Ductal Carcinoma In Situ (DCIS) DCIS is present in specimen _X__ Positive for extensive intraductal component (EIC) Size (Extent) of DCIS + Estimated size (extent) of DCIS is at least (millimeters): 28 mm + Number of blocks with DCIS: 7 + Number of blocks examined: 20 Margins Invasive Carcinoma Margins _x_ Uninvolved by invasive carcinoma Distance from closest margin (millimeters):> 4mm Closest margin: Anterior. Invasive carcinoma is at 4 mm from the anterior margin in the mastectomy specimen (specimen D). Additional anterior margin E is negative for carcinoma. DCIS Margins _x__ Uninvolved by DCIS Distance from closest margin (millimeters): > 4mm Closest margin: Anterior. Invasive carcinoma is at 4 mm from the anterior margin in the mastectomy specimen (specimen D). Additional anterior margin (specimen E) is negative for carcinoma. Regional Lymph Nodes _x__ Uninvolved by tumor cells Number of Lymph Nodes Examined: 1 Number of [place] Nodes Examined: 1 Treatment Effect Treatment Effect in the Breast _x_ Probable or definite response to presurgical therapy in the invasive carcinoma Treatment Effect in the Lymph Nodes _x_ No lymph node metastases and no prominent fibrous scarring in the nodes Lymphovascular Invasion _x_ Not identified Pathologic Stage Classification (pTNM, AJCC 8th Edition) Primary Tumor (Invasive Carcinoma) (pT) _x_ pT1b: Tumor >5 mm but =10 mm in greatest dimension Category (pN) _X_ pN0: No regional lymph node metastasis identified or ITCs only Biomarker Studies Results of ER and AL studies performed on this specimen (block# D7) at [facility] are as follows: ER (clone [id number] mouse monoclonal antibody by [employer]): 100% nuclear staining with strong intensity (positive). AL (clone16 mouse monoclonal antibody by [employer]): 60% nuclear staining with strong and moderate intensity (positive). Results of Her2 and Ki67 studies will be reported separately in an addendum. Positive and negative controls (internal if applicable) show appropriate results. Formalin fixation and cold ischemic times are within current ASCO/CAP recommendations for ER, AL and Her2 testing. Breast Invasive Carcinoma: Surgical Pathology Case Summary for Left Breast (Based on AJCC TNM 8 th edition) Procedure _x_ Total mastectomy (including nipple-sparing and skin-sparing mastectomy) Specimen Laterality _x_ Left Tumor Size _x_ No residual invasive carcinoma Ductal Carcinoma In Situ (DCIS) _x_ DCIS is present in specimen Estimated size (extent) of DCIS is at least (millimeters): 4 mm Number of blocks with DCIS: 1 Number of blocks examined: 24 Margins DCIS Margins _x_ Uninvolved by DCIS Distance from closest margin (millimeters): > 27mm Closest margin: Anterior. Invasive carcinoma is at 27 mm from the anterior margin in the mastectomy specimen (specimen F). Additional anterior margin G and H are negative for carcinoma. Regional Lymph Nodes _x_ Uninvolved by tumor cells Number of Lymph Nodes Examined: 2 Number of [place] Nodes Examined: 2 Treatment Effect Treatment Effect in the Breast _x_ No residual invasive carcinoma is present in the breast after presurgical therapy Treatment Effect in the Lymph Nodes _x_ No lymph node metastases and no prominent fibrous scarring in the nodes Lymphovascular Invasion _x_ Not identified Pathologic Stage Classification (pTNM, AJCC 8th Edition) Primary Tumor (Invasive Carcinoma) (pT) _x_ pTis (DCIS): Ductal carcinoma in situ Category (pN) _x_ pN0: No regional lymph node metastasis identified or ITCs only Biomarker Studies Results of ER and AL studies performed on this specimen (block# F7) at [facility] are as follows: ER (clone [id number] mouse monoclonal antibody by [employer]): 100% nuclear staining with strong intensity (positive). AL (clone16 mouse monoclonal antibody by [employer]): 0% nuclear staining (negative). Positive and negative controls (internal if applicable) show appropriate results. Formalin fixation and cold ischemic times are within current ASCO/CAP recommendations for ER, AL and Her2 testing. Electronically Signed Meme Garcia M.D. Addendum Reported: 02/17/2019 Addendum Diagnosis Biomarker Studies Results of Her2 (IHC) & Ki-67 studies performed on this specimen (D7) at [place], [place] ([id number]) interpreted at [facility] are as follows: Her2 IHC (EP3 from [employer], formerly known as [id number], using To Polymer Refine detection kit): Negative (0) Ki-67: ~1% (low proliferative index) Meme Garcia M.D. Gross Description A. Received fresh for frozen section labeled "left axillary sentinel lymph nodes #1, no count", is a 0.5 x 0.5 x 0.4 cm lymph node. The specimen is bisected and entirely submitted for frozen. The frozen remainder is submitted in cassette FSA. B. Received fresh for frozen section labeled "left axillary sentinel lymph nodes #2, count 155", is a 1.5 x 1.0 x 0.6 cm lymph node. The specimen is bisected and entirely submitted for frozen. The frozen remainder is submitted in cassette FSB. C. Received fresh for frozen section labeled "right axillary sentinel lymph nodes #1, count 353", is a 1.2 x 1.0 x 0.5 cm lymph node. The specimen is bisected and entirely submitted for frozen. The frozen remainder is submitted in cassette FSC. D. Received in formalin, labeled "right breast," is a 621 gram, 18.5 x 16.5 x 6.5 cm. right mastectomy specimen with a short suture marking the superior aspect and a long suture marking the lateral aspect of the specimen, per the surgeon. The anterior surface displays a 5.0 x 4.8 cm narvaez, ovoid portion of skin with a 1.2 cm in diameter nipple. The deep margin is inked black and the anterior soft tissue margin is inked blue. The specimen is serially sectioned from lateral to medial. Sectioning reveals a 1.8 x 1.8 x 1.5 cm narvaez, focally indurated, ill-defined mass in the upper outer quadrant (UOQ). The mass abuts the anterior soft tissue margin. The remaining breast parenchyma displays abundant dense, white, focally firm fibrous tissue. [employer] sections are submitted in 17 cassettes as follows: 1-serially sectioned nipple; 2-subareolar shave; 2-0-dxuhvqeq and sequentially submitted area of UOQ mass from medial to lateral, each with anterior soft tissue margin; 9-uninvolved UOQ; 10-11-lower outer quadrant; 12-13-upper inner quadrant; 14-15-lower inner quadrant; 16-skin; 17-deep margin. E. Received in formalin labeled "right breast upper outer quadrant anterior margin," is a 3.2 x 2.5 x 1.0 cm portion of fibroadipose tissue with a suture marking the biopsy cavity site, per the surgeon. The new margin is inked blue and the specimen is serially sectioned. The specimen is entirely and sequentially submitted in 3 cassettes. F. Received in formalin, labeled "left breast," is a 625 gram, 19.0 x 16.5 x 5.0 cm. left mastectomy specimen with a short suture marking the superior aspect and a long suture marking the lateral aspect of the specimen, per the surgeon. The anterior surface displays a 5.8 x 5.2 cm narvaez, ovoid portion of skin with a 1.1 cm in diameter nipple. The deep margin is inked black and the anterior soft tissue margin is inked blue. The specimen is serially sectioned from medial to lateral. Sectioning reveals a aguero metallic biopsy clip in the lower outer quadrant (LOQ). The clip is surrounded by white fibrous tissue. No definitive mass is identified. Sectioning of the remaining breast parenchyma displays multifocal dense, white, focally firm fibrous tissue. [facility] [employer] sections are submitted in 18 cassettes as follows: 1-serially sectioned nipple; 2-subareolar shave; 3-LOQ section from biopsy clip; 4-7-LOQ fibrous tissue surrounding biopsy clip, each with anterior soft tissue margin; 8-uninvolved LOQ tissue; 9-11-upper outer quadrant; 12-13-upper inner quadrant; 14-16-lower inner quadrant; 17-skin; 18-deep margin. Total formalin fixation time: Approximately 24 hours G. Received in formalin labeled "left breast anterior margin 6:00," is a 4.0 x 3.2 x 1.4 cm portion of fibroadipose tissue with a suture presumably marking the biopsy cavity site. The presumed new margin is inked blue and the specimen is serially sectioned. The specimen is entirely and sequentially submitted in 6 cassettes. H. Received in formalin labeled "left breast lateral anterior margin," is a 3.5 x 2.4 x 1.3 cm portion of fibroadipose tissue with a suture marking the biopsy cavity side, per the surgeon. The new margin is inked blue and the specimen is serially sectioned. The specimen is entirely and sequentially submitted in 4 cassettes. 02/11/2019 [facility]02/11/2019
== END 2019-02-13 15:00 | disposition home health service (06) | DRG 581 ==
LOC: JSAMEDAYSX 04:50 → JICU 20:28
PROVIDERS: ADMIT Surgery Surgical Oncology; ATTEND Surgery Surgical Oncology
PROC: 07B80ZX Excision of Right Internal Mammary Lymphatic, Open Approach, Diagnostic (ICD-10-PCS; 2019-02-10)
PROC: 0HRV077 Replacement of Bilateral Breast using Deep Inferior Epigastric Artery Perforator Flap, Open Approach (ICD-10-PCS; 2019-02-10)
PROC: C71LYZZ Planar Nuclear Medicine Imaging of Upper Chest Lymphatics using Other Radionuclide (ICD-10-PCS; 2019-02-10)
PROC: 0HTV0ZZ Resection of Bilateral Breast, Open Approach (ICD-10-PCS; principal; 2019-02-10 08:00)
PROC: 07B90ZX Excision of Left Internal Mammary Lymphatic, Open Approach, Diagnostic (ICD-10-PCS; 2019-02-10 08:00)
DX: C50.812 Malignant neoplasm of overlapping sites of left female breast (principal); C50.411 Malignant neoplasm of upper-outer quadrant of right female breast; Z17.0 Estrogen receptor positive status [ER+]; Z90.710 Acquired absence of both cervix and uterus; E04.1 Nontoxic single thyroid nodule; F17.210 Nicotine dependence, cigarettes, uncomplicated; Z80.0 Family history of malignant neoplasm of digestive organs; Z80.1 Family history of malignant neoplasm of trachea, bronchus and lung; E78.2 Mixed hyperlipidemia; D53.9 Nutritional anemia, unspecified
CPT/HCPCS: 36415; 76098-TC-FY; 78195-TC; 80048; 80053; 85025; 85027; 86850; 86900; 86901; 88307-TC; 88331-TC; 94010; 94760; 97116-GP; 97162-GP; A9541; J0131; J1644

== ENCOUNTER 2022-11-09 15:26 | Observation (INO) | payer BC ==
[2022-11-09] MEDS ORDERED: morphine CARPU-JECT 4 MG/1 ML DISP.SYRIN IVPUSH ONE (17:01)
[2022-11-09] MEDS ORDERED: ONDANSETRON 4 MG/2 ML VIAL IVPUSH ONE (17:01)
[2022-11-09] MEDS ORDERED: ONDANSETRON 4 MG/2 ML VIAL ONE (17:19)
[2022-11-09] MEDS ORDERED: morphine SULFATE 4 MG/ML VIAL ONE (17:19)
[2022-11-09] MEDS ORDERED: diazePAM 5 MG TABLET PO ONE (17:20)
[2022-11-09] MEDS ORDERED: KETOROLAC TROMETHAMINE 15 MG/ML VIAL IVPUSH ONE (17:20)
[2022-11-09] MEDS ORDERED: DEXAMETHASONE SOD PHOSPHATE 10 MG/1 ML VIAL IVPUSH ONE (17:20)
[2022-11-09] MEDS ORDERED: diazePAM 5 MG TABLET ONE (17:23)
[2022-11-09] MEDS ORDERED: DEXAMETHASONE SOD PHOSPHATE 10 MG/1 ML VIAL ONE (17:23)
[2022-11-09] MEDS ORDERED: KETOROLAC TROMETHAMINE 15 MG/ML VIAL ONE (17:23)
[2022-11-09 19:40] LABS: EPI CELLS 3 /uL (0-25.1); HYALINE CASTS 0 /uL (0-3.1); PH,URINE 6.5 (5.0-8.0); URINE APPEARANCE CLEAR; URINE BACTERIA 4 /uL (0-1359); URINE BILIRUBIN NEGATIVE (NEGATIVE); URINE COLOR YELLOW; URINE GLUCOSE (UA) NEGATIVE (NEGATIVE); URINE KETONE NEGATIVE (NEGATIVE); URINE LEUK ESTERASE NEGATIVE (NEGATIVE); URINE NITRITE NEGATIVE (NEGATIVE); URINE PROTEIN NEGATIVE (NEGATIVE); URINE RBC 18 /uL (0-23.9); URINE UROBILINOGEN 0.2 mg/dL (0.2-1.0); URINE WBC 4 /uL (0-25.8)
[2022-11-09 20:34] LABS: EOS % 4.5 % (0-4.5); HEMATOCRIT 39.6 % (32.4-45.2); HEMOGLOBIN 13.6 GM/dL (10.7-15.3); LYMPH % 22.5 % (8-40); MCH 29.9 pg (25.7-33.7); MCHC 34.3 g/dl (32.0-36.0); MEAN CELL VOLUME 87.1 fl (80-96); MEAN PLT VOLUME 9.8 fl (7.5-11.1); MONO % 9.7 % (3.8-10.2); NEUT % 62.3 % (42.8-82.8); PLATELET COUNT 208 10^3/uL (134-434); RBC 4.55 M/mm3 (3.60-5.2); RDW 13.4 % (11.6-15.6); WHITE BLOOD COUNT 7.1 K/mm3 (4.0-10.0)
[2022-11-09 20:54] LABS: POTASSIUM 3.7 mmol/L (3.5-5.1)
[2022-11-09 20:55] LABS: CALCIUM 9.2 mg/dL (8.5-10.1)
[2022-11-09 20:56] LABS: BLOOD UREA NITROGEN 20.8 mg/dL (7-18)
[2022-11-09 20:59] LABS: CREATININE 0.9 mg/dL (0.55-1.3)
[2022-11-09] MEDS ORDERED: ACETAMINOPHEN 1000 MG/100 ML BAG IVPB PRN (21:55)
[2022-11-09] MEDS ORDERED: METHOCARBAMOL 500 MG TABLET PO PRN (21:56)
[2022-11-09] MEDS ORDERED: DOCUSATE SODIUM 100 MG CAPSULE (FP) PO ONE (22:18)
[2022-11-10] MEDS ORDERED: KETOROLAC TROMETHAMINE 15 MG/ML VIAL IVPUSH PRN (00:01)
[2022-11-10] MEDS: DOCUSATE SODIUM 100 MG CAPSULE (FP) PO SCH ×2 (02:08→21:27)
[2022-11-10 06:01] VITALS: BMI 27.6
[2022-11-10 08:46] LABS: HEMATOCRIT 37.6 % (32.4-45.2); MCH 29.7 pg (25.7-33.7); MCHC 34.6 g/dl (32.0-36.0); MEAN CELL VOLUME 86.1 fl (80-96); MEAN PLT VOLUME 8.7 fl (7.5-11.1); PLATELET COUNT 211 10^3/uL (134-434); RBC 4.37 M/mm3 (3.60-5.2); RDW 13.2 % (11.6-15.6); WHITE BLOOD COUNT 6.4 K/mm3 (4.0-10.0)
[2022-11-10 09:04] LABS: POTASSIUM 4.5 mmol/L (3.5-5.1)
[2022-11-10 09:07] LABS: BLOOD UREA NITROGEN 23.6 mg/dL (7-18); CALCIUM 9.4 mg/dL (8.5-10.1)
[2022-11-10 09:08] LABS: MAGNESIUM 2.6 mg/dL (1.8-2.4)
[2022-11-10 09:09] LABS: PHOSPHOROUS 4.2 mg/dL (2.5-4.9)
[2022-11-10 09:10] LABS: CREATININE 0.6 mg/dL (0.55-1.3)
[2022-11-11 07:26] VITALS: BP 111/54; PULSE 49; RESP 16; TEMP 98.4
== END 2022-11-11 13:27 | disposition home or self-care (01) ==
LOC: JER 15:26 → JERBED 21:10 → INTOOBSV 21:10 → J7W 23:45
PROVIDERS: ADMIT Internal Medicine; ATTEND Family Medicine
PROC: 3E033GC Introduction of Other Therapeutic Substance into Peripheral Vein, Percutaneous Approach (ICD-10-PCS; principal; 2022-11-09)
PROC: 3E0333Z Introduction of Anti-inflammatory into Peripheral Vein, Percutaneous Approach (ICD-10-PCS; 2022-11-09)
DX: C50.812 Malignant neoplasm of overlapping sites of left female breast (principal); M54.59 Other low back pain; Z88.6 Allergy status to analgesic agent; Z88.8 Allergy status to other drugs, medicaments and biological substances; Z17.0 Estrogen receptor positive status [ER+]; M54.16 Radiculopathy, lumbar region
CPT/HCPCS: 0241U-QW; 36415; 72131-TC; 72148-TC; 80048; 81003; 82962; 83735; 84100; 85025; 85027; 93005; 93010; 97116-GP; 99285-25; G0378; J1100